=== PATIENT | female | born 1990 | race Two or more races ===

== ENCOUNTER 2017-07-12 18:54 | Emergency (ER) | payer MEDICAID, OTHER, SELFPAY ==
[2017-07-12 19:10] VITALS: BP 132/81
--- NOTE | 2017-07-12 20:15 | EDM.PDOC ---
ED HPI GENERAL MEDICAL PROBLEM - General Chief Complaint: Chest Pain Stated Complaint: CHEST PAINS LEFT SIDE NUMBNESS Time Seen by Provider: 07/12/17 19:04 Source of Information: Reports: Patient, RN Notes Reviewed, Other (Friend) History Limitations: Reports: Language Barrier (The patient's friend acted as a head of design) - History of Present Illness INITIAL COMMENTS - FREE TEXT/NARRATIVE: The patient states that she developed sudden onset stabbing left chest pain around 18:00 tonight, while driving. She had nausea, and both of her hands became cold and tingly. The left side of her face became numb. She denied dyspnea or diaphoresis. She states that she now has only slight symptoms after approximately one hour duration. She states that she felt better after taking aspirin. She reports prior chest pain, but not the other symptoms. The patient's oxygen saturation is noted to be 100% on room air. The patient does not have a PCP. Treatments HAND PICKER: Reports: Aspirin Chest Pain Score (Numeric/FACES): 7 - Related Data Allergies Allergy/AdvReac Type Severity Reaction Status Date / Time No Known Allergies Allergy Verified 07/12/17 19:16 Home Meds: Home Meds . [No Known Home Meds] 07/12/17 [History] Multivitamin [Multiple Vitamins] 1 tab PO DAILY 07/12/17 [History] Past Medical History - Past Health History Medical/Surgical History: Denies Medical/Surgical History Social & Family History - Family History Cardiac: Reports: [place] Other Cardiac Family History: grandmother - Tobacco Use Smoking Status *Q: Never Smoker - Caffeine Use Caffeine Use: Reports: Coffee, Soda - Alcohol Use Alcohol Use History: No - Recreational Drug Use Recreational Drug Use: No - Living Situation & Occupation Living situation: Reports: (), with Family (1 child) Occupation: Employed ([employer]) ED ROS GENERAL - Review of Systems Review Of Systems: See Below Constitutional: Reports: No Symptoms HEENT: Reports: No Symptoms Respiratory: Reports: No Symptoms Cardiovascular: Reports: No Symptoms Endocrine: Reports: No Symptoms GI/Abdominal: Reports: No Symptoms : Reports: No Symptoms Musculoskeletal: Reports: No Symptoms Skin: Reports: No Symptoms Neurological: Reports: No Symptoms Psychiatric: Reports: Depression (x 4 days) Hematologic/Lymphatic: Reports: No Symptoms Immunologic: Reports: No Symptoms ED EXAM, GENERAL - Physical Exam Exam: See Below Exam Limited By: No Limitations General Appearance: Alert, WD/WN, No Apparent Distress, Anxious Eye Exam: Bilateral Eye: Normal Inspection Ears: Normal External Exam, Hearing Grossly Normal Nose: Normal Inspection, No Blood Throat/Mouth: Normal Inspection, Normal Lips, Normal Voice, No Airway Compromise Head: Atraumatic, Normocephalic Neck: Normal Inspection, Full Range of Motion Respiratory/Chest: No Respiratory Distress, Lungs Clear, Normal Breath Sounds, No Accessory Muscle Use Cardiovascular: Normal Peripheral Pulses, Regular Rate, Rhythm, No Gallop, No JVD, No Murmur, No Rub Peripheral Pulses: 4+: Radial (L), Radial (R) GI/Abdominal: Normal Bowel Sounds, Soft, Non-Tender, No Organomegaly, No Distention, No Abnormal Bruit, No Mass (Female) Exam: Deferred Rectal (Female) Exam: Deferred Back Exam: Normal Inspection, Full Range of Motion, NT Extremities: Normal Inspection, Normal Range of Motion, No Pedal Edema, Normal Capillary Refill Neurological: Alert, Oriented, Normal Cognition, No Motor/Sensory Deficits Psychiatric: Normal Affect, Anxious Skin Exam: Warm, Dry, Intact, Normal Color, No Rash Lymphatic: No Adenopathy EKG INTERPRETATION EKG Date: 07/12/17 Time: 19:12 Rhythm: NSR Rate (Beats/Min): 75 [place]: Normal P-Wave: Present QRS: Normal ST-T: Normal QT: Normal Comparison: NA - No Prior EKG Course - Vital Signs Last Recorded V/S: Last Vital Signs Temp 36.0 C 07/12/17 19:09 Pulse 63 07/12/17 19:09 Resp 20 07/12/17 19:09 BP 132/81 07/12/17 19:09 Pulse Ox 100 07/12/17 19:09 Orthostatic Blood Pressure [ 116/92 Standing] Orthostatic Blood Pressure [ 117/83 Sitting] Orthostatic Blood Pressure [ 99/76 Supine] - Orders/Labs/Meds Orders: Active Orders 24 hr Category Date Time Status EKG 12 Lead [EKG Documentation Completion] [RC] STAT Care 07/12/17 19:17 Active Orthostatic Vital Signs [RC] STAT Care 07/12/17 19:41 Active Chest 2V [CR] Stat Exams 07/12/17 19:41 Taken BLOOD GAS ARTERIAL [BG] Stat Lab 07/12/17 19:41 Results CULTURE URINE [RM] Stat Lab 07/12/17 20:02 Received Labs: Laboratory Tests 07/12/17 07/12/17 07/12/17 Range/Units 19:41 20:02 20:02 WBC 11.24 H (3.98-10.04) K/mm3 RBC 4.67 (3.98-5.22) M/mm3 Hgb 14.4 (11.2-15.7) gm/L Hct 40.4 (34.1-44.9) % MCV 86.5 (79.4-94.8) fl MCH 30.8 (25.6-32.2) pg MCHC 35.6 H (32.2-35.5) g/dl RDW Std Deviation 36.9 (36.4-46.3) fL Plt Count 320 (182-369) K/mm3 MPV 9.7 (9.4-12.3) fl Neutrophils % (Manual) 52 (40-60) % Band Neutrophils % 0 (0-10) % Lymphocytes % (Manual) 30 (20-40) % Atypical Lymphs % 0 % Monocytes % (Manual) 12 H (2-10) % Eosinophils % (Manual) 5 (0.7-5.8) % Basophils % (Manual) 0 L (0.1-1.2) Myelocytes % 1 Platelet Estimate Adequate Plt Morphology Comment Normal RBC Morph Comment Normal PT 10.8 (8.0-13.0) SECONDS INR 0.99 APTT 27 (22-36) SECONDS D-Dimer, Quantitative < 0.19 L (0.19-0.59) mg/L Puncture Site Rt radial ABG pH 7.58 H (7.35-7.45) ABG pCO2 17.5 L* (35.0-45.0) mmHg ABG pO2 91.0 (80.0-100.0) mmHg ABG HCO3 16.3 L (22.0-26.0) meq/L ABG O2 Saturation 98.6 H (96.0-97.0) % ABG Base Excess -3.1 L (-2-2.0) A-a Gradient 22 mmHg O2 Delivery Device Room air FiO2 0.00 L (21.00-100.00) % Sodium (136-145) mEq/L Potassium (3.5-5.1) mEq/L Chloride (98-107) mEq/L Carbon Dioxide (21-32) mEq/L Anion Gap (5-15) BUN (7-18) mg/dL Creatinine (0.55-1.02) mg/dL Est Cr Clr Drug Dosing mL/min Estimated GFR (MDRD) (>60) mL/min BUN/Creatinine Ratio (14-18) Glucose (74-106) mg/dL Calcium (8.5-10.1) mg/dL Magnesium (1.8-2.4) mg/dl Total Bilirubin (0.2-1.0) mg/dL AST (15-37) U/L ALT (14-59) U/L Alkaline Phosphatase (46-116) U/L Troponin I (0.00-0.056) ng/mL NT-Pro-B Natriuret Pep (0-125) pg/mL Total Protein (6.4-8.2) g/dl Albumin (3.4-5.0) g/dl Globulin gm/dL Albumin/Globulin Ratio (1-2) TSH 3rd Generation (0.358-3.74) uIU/mL Urine Color (Yellow) Urine Appearance (Clear) Urine pH (5.0-8.0) Ur Specific [place] (1.005-1.030) Urine Protein (Negative) Urine Glucose (UA) (Negative) Urine Ketones (Negative) Urine Occult Blood (Negative) Urine Nitrite (Negative) Urine Bilirubin (Negative) Urine Urobilinogen (0.2-1.0) Ur Leukocyte Esterase (Negative) Urine RBC (0-5) /hpf Urine WBC (0-5) /hpf Ur Epithelial Cells (0-5) /hpf Urine Bacteria (FEW) /hpf Urine Mucus (FEW) /hpf Urine HCG, Qual (NEGATIVE) 07/12/17 07/12/17 07/12/17 Range/Units 20:02 20:02 20:02 WBC (3.98-10.04) K/mm3 RBC (3.98-5.22) M/mm3 Hgb (11.2-15.7) gm/L Hct (34.1-44.9) % MCV (79.4-94.8) fl MCH (25.6-32.2) pg MCHC (32.2-35.5) g/dl RDW Std Deviation (36.4-46.3) fL Plt Count (182-369) K/mm3 MPV (9.4-12.3) fl Neutrophils % (Manual) (40-60) % Band Neutrophils % (0-10) % Lymphocytes % (Manual) (20-40) % Atypical Lymphs % % Monocytes % (Manual) (2-10) % Eosinophils % (Manual) (0.7-5.8) % Basophils % (Manual) (0.1-1.2) Myelocytes % Platelet Estimate Plt Morphology Comment RBC Morph Comment PT (8.0-13.0) SECONDS INR APTT (22-36) SECONDS D-Dimer, Quantitative (0.19-0.59) mg/L Puncture Site ABG pH (7.35-7.45) ABG pCO2 (35.0-45.0) mmHg ABG pO2 (80.0-100.0) mmHg ABG HCO3 (22.0-26.0) meq/L ABG O2 Saturation (96.0-97.0) % ABG Base Excess (-2-2.0) A-a Gradient mmHg O2 Delivery Device FiO2 (21.00-100.00) % Sodium 139 (136-145) mEq/L Potassium 3.3 L (3.5-5.1) mEq/L Chloride 104 (98-107) mEq/L Carbon Dioxide 22 (21-32) mEq/L Anion Gap 16.3 H (5-15) BUN 16 (7-18) mg/dL Creatinine 1.1 H (0.55-1.02) mg/dL Est Cr Clr Drug Dosing 85.86 mL/min Estimated GFR (MDRD) 60 (>60) mL/min BUN/Creatinine Ratio 14.5 (14-18) Glucose 94 (74-106) mg/dL Calcium 9.7 (8.5-10.1) mg/dL Magnesium 2.0 (1.8-2.4) mg/dl Total Bilirubin 0.5 (0.2-1.0) mg/dL AST 15 (15-37) U/L ALT 21 (14-59) U/L Alkaline Phosphatase 44 L (46-116) U/L Troponin I < 0.017 (0.00-0.056) ng/mL NT-Pro-B Natriuret Pep 22 (0-125) pg/mL Total Protein 7.9 (6.4-8.2) g/dl Albumin 4.3 (3.4-5.0) g/dl Globulin 3.6 gm/dL Albumin/Globulin Ratio 1.2 (1-2) TSH 3rd Generation 4.453 H (0.358-3.74) uIU/mL Urine Color Yellow (Yellow) Urine Appearance Slt cloudy H (Clear) Urine pH 6.5 (5.0-8.0) Ur Specific [place] 1.020 (1.005-1.030) Urine Protein Negative (Negative) Urine Glucose (UA) Negative (Negative) Urine Ketones Negative (Negative) Urine Occult Blood Negative (Negative) Urine Nitrite Negative (Negative) Urine Bilirubin Negative (Negative) Urine Urobilinogen 0.2 (0.2-1.0) Ur Leukocyte Esterase 2+ H (Negative) Urine RBC 0-5 (0-5) /hpf Urine WBC 10-20 H (0-5) /hpf Ur Epithelial Cells 5-10 H (0-5) /hpf Urine Bacteria Few (FEW) /hpf Urine Mucus Few (FEW) /hpf Urine HCG, Qual Negative (NEGATIVE) - Re-Assessments/Exams Free Text/Narrative Re-Assessment/Exam: 07/12/17 20:10 The patient is not orthostatic. 07/12/17 20:41 The patient's urinalysis is notable for 10-20 WBCs and 2+ leukocyte esterase, however, there are 5-10 epithelial cells and few bacteria. As the patient is not complaining of urinary symptoms, I believe this urinalysis is consistent with contamination, not a UTI. I have ordered a urine culture, but I am not going to start the patient on antibiotics at this time. Two-view chest radiograph appears to be grossly normal. Cardiac silhouette is within normal limits. No pulmonary vascular congestion. No pleural effusions. No focal infiltrate. No pneumothorax. Formal read per the Radiologist pending. 07/12/17 21:28 The patient's ABG shows extreme acute on chronic respiratory alkalosis. 07/12/17 22:14 Test results discussed with the patient and her friend. The ABG confirms that the patient was hyperventilating, which is usually caused by anxiety, although can be caused by a variety of medical conditions including metabolic acidosis, hypocalcemia, hypoglycemia, hyperthyroidism, liver failure, severe anemia, sepsis, acute coronary event, pneumothorax, pneumonia, dysrhythmia, PE, and CHF. These have been ruled out. I will refer the patient to Dr. Buckley for treatment of anxiety disorder, as well as to check on the urine culture results. Departure - Departure Time of Disposition: 22:15 Disposition: Home, Self-Care 01 Condition: Good Clinical Impression: Hyperventilation syndrome, Anxiety - Discharge Information Instructions: Hyperventilation, Panic Attacks, [id number] Referrals: PCP,Yessenia [Primary Care Provider] - Joe Buckley [Physician] - Forms: ED Department Discharge Additional Instructions: You were seen in the emergency room for stabbing chest pain, nausea, and tingling of your hands and face. Workup in the ER included blood work, an arterial blood gas, a urinalysis, a urine test, an ECG, a chest x-ray, and positional blood pressure checks. Your arterial blood gas confirmed that you were hyperventilating, which is what caused your symptoms. Hyperventilation is usually caused by anxiety, although can be caused by a variety of medical conditions, including metabolic acidosis, hypocalcemia, hypoglycemia, hyperthyroidism, liver failure, severe anemia, sepsis, acute coronary event, pneumothorax, pneumonia, dysrhythmia, PE, and CHF. These have been ruled out - you do not have any of these. The cause of your hyperventilation is MOST LIKELY anxiety. We recommend that you follow-up with Dr. Buckley in the clinic this Tuesday, 2016, to discuss treatment options for anxiety. A sample of your urine was sent for culture. Dr. Buckley can check to make sure that you do not have a urinary tract infection. If any other problems, please do not hesitate to return to the ER. - My Orders Last 24 Hours: My Active Orders 07/12/17 19:17 EKG 12 Lead [EKG Documentation Completion] [RC] STAT 07/12/17 19:41 Orthostatic Vital Signs [RC] STAT Chest 2V [CR] Stat BLOOD GAS ARTERIAL [BG] Stat 07/12/17 20:02 CULTURE URINE [RM] Stat - Assessment/Plan Last 24 Hours: My Active Orders 07/12/17 19:17 EKG 12 Lead [EKG Documentation Completion] [RC] STAT 07/12/17 19:41 Orthostatic Vital Signs [RC] STAT Chest 2V [CR] Stat BLOOD GAS ARTERIAL [BG] Stat 07/12/17 20:02 CULTURE URINE [RM] Stat
--- NOTE | 2017-07-13 08:36 | CR ---
Chest: Two views of the chest were obtained. Comparison: No prior chest x-ray. Heart size and mediastinum are within normal limits. Lungs are clear. Slight scoliosis is present. Bony structures are otherwise unremarkable. Impression: 1. Nothing acute is identified on two-view chest x-ray. Diagnostic code #1
== END 2017-07-12 22:29 | disposition home or self-care (01) ==
LOC: JD.ED 18:54
DX: F45.8 Other somatoform disorders (principal); F41.9 Anxiety disorder, unspecified
CPT/HCPCS: 36415; 36600; 71020; 71020-26; 80053; 81001; 81025; 82803; 83735; 83880; 84443; 84484; 85025; 85379; 85610; 85730; 87086; 93005; 99284; 99285-25

== ENCOUNTER 2018-07-01 19:17 | Emergency (ER) | payer SELFPAY ==
[2018-07-01 19:26] VITALS: BP 120/90
--- NOTE | 2018-07-01 19:47 | EDM.PDOC ---
ED HPI GENERAL MEDICAL PROBLEM - General Chief Complaint: Abdominal Pain Stated Complaint: ABDOMINAL PAIN Time Seen by Provider: 07/01/18 19:21 Source of Information: Reports: Patient History Limitations: Reports: No Limitations, Other (There is a slight language barrier however with our phones we are able to translate and she can speak good enough Indonesian to understand.) - History of Present Illness INITIAL COMMENTS - FREE TEXT/NARRATIVE: This is a 27-year-old female. Onset yesterday with some left lower quadrant pain that has progressively worsened into today. No nausea vomiting or diarrhea. Her last menstrual period was June 02 and she thinks in about 8 days she supposed to have her period again but she might be . She has a history of about 3 years ago of a left ovarian cyst, likely pain she is having now. She denies any fever or chills. She states when she walks the jarring makes her left lower quadrant hurt. When the pain gets more severe and will go around to her lower left back. She's had no urinary symptoms and no blood in her urine. She does have a normal vaginal discharge that is white and does not smell and she says it's normal. llq abdomen/groin and back Pain Score (Numeric/FACES): 5 - Related Data Allergies Allergy/AdvReac Type Severity Reaction Status Date / Time No Known Allergies Allergy Verified 07/01/18 19:27 Home Meds: Home Meds . [No Known Home Meds] 07/01/18 [History] Past Medical History - Past Health History Medical/Surgical History: Denies Medical/Surgical History Psychiatric History: Reports: Anxiety Social & Family History - Family History Family Medical History: Noncontributory Cardiac: Reports: [facility] Other Cardiac Family History: grandmother - Tobacco Use Smoking Status *Q: Never Smoker - Caffeine Use Caffeine Use: Reports: Coffee - Recreational Drug Use Recreational Drug Use: No - Living Situation & Occupation Living situation: Reports: (), with Family (1 child) Occupation: Employed ([employer]) ED ROS GENERAL - Review of Systems Review Of Systems: See Below Constitutional: Denies: Fever, Chills HEENT: Reports: No Symptoms Respiratory: Reports: No Symptoms Cardiovascular: Reports: No Symptoms Endocrine: Reports: No Symptoms GI/Abdominal: Reports: Abdominal Pain. Denies: Diarrhea, Nausea, Vomiting : Reports: Other (She normally has a slight white discharge). Denies: Dysuria , Flank Pain, Frequency, Hematuria Musculoskeletal: Reports: No Symptoms Skin: Reports: No Symptoms Neurological: Reports: No Symptoms Psychiatric: Reports: No Symptoms Hematologic/Lymphatic: Reports: No Symptoms ED EXAM, GI/ABD - Physical Exam Exam: See Below Exam Limited By: Other (Limitations as in the history of present illness) General Appearance: Alert, WD/WN, No Apparent Distress Eyes: Bilateral: Normal Appearance Ears: Normal External Exam Nose: Normal Inspection Throat/Mouth: Normal Inspection, Normal Lips, Normal Oropharynx, Normal Voice, No Airway Compromise Head: Normocephalic Neck: Supple Respiratory/Chest: No Respiratory Distress, Lungs Clear, Normal Breath Sounds Cardiovascular: Regular Rate, Rhythm, No Murmur GI/Abdominal Exam: Soft, Other (She has tenderness in the left lower quadrant but no rebound is noted, palpation deep in the left lower quadrant will tend to make her left lower back have some pain as well, the right lower quadrant in the upper abdomen is nontender, bowel sounds are positive) (Female) Exam: Deferred, Other (This was deferred by the patient until we have the results of the lab work and the ultrasound) Rectal (Female) Exam: Deferred Back Exam: Normal Inspection, Full Range of Motion Extremities: Normal Inspection, Normal Range of Motion Neurological: Alert, Oriented Psychiatric: Normal Affect, Normal Mood Skin Exam: Warm, Dry Course - Vital Signs Last Recorded V/S: Last Vital Signs Temp 98 F 07/01/18 19:24 Pulse 64 07/01/18 19:24 Resp 18 07/01/18 19:24 BP 120/90 07/01/18 19:24 Pulse Ox 100 07/01/18 19:24 - Orders/Labs/Meds Orders: Active Orders 24 hr Category Date Time Status OB Transvaginal [US] Stat Exams 07/01/18 20:10 Taken ABO/RH TYPE [BBK] Stat Lab 07/01/18 19:49 Received CULTURE URINE [RM] Stat Lab 07/01/18 19:44 Received HCG QUANTITATIVE,SERUM [CHEM] Stat Lab 07/01/18 19:49 Received Labs: Laboratory Tests 07/01/18 07/01/18 07/01/18 Range/Units 19:44 19:49 19:49 WBC 11.67 H (3.98-10.04) K/mm3 RBC 4.35 (3.98-5.22) M/mm3 Hgb 13.2 (11.2-15.7) gm/L Hct 38.7 (34.1-44.9) % MCV 89.0 (79.4-94.8) fl MCH 30.3 (25.6-32.2) pg MCHC 34.1 (32.2-35.5) g/dl RDW Std Deviation 39.8 (36.4-46.3) fL Plt Count 298 (182-369) K/mm3 MPV 9.6 (9.4-12.3) fl Neut % (Auto) 59.3 (34.0-71.1) % Lymph % (Auto) 33.2 (19.3-51.7) % [place] % (Auto) 5.9 (4.7-12.5) % Eos % (Auto) 0.9 (0.7-5.8) Baso % (Auto) 0.3 (0.1-1.2) % Neut # (Auto) 6.91 H (1.56-6.13) K/mm3 Lymph # (Auto) 3.88 H (1.18-3.74) K/mm3 [place] # (Auto) 0.69 H (0.24-0.36) K/mm3 Eos # (Auto) 0.11 (0.04-0.36) K/mm3 Baso # (Auto) 0.03 (0.01-0.08) K/mm3 Sodium 137 (136-145) mEq/L Potassium 3.7 (3.5-5.1) mEq/L Chloride 104 (98-107) mEq/L Carbon Dioxide 23 (21-32) mEq/L Anion Gap 13.7 (5-15) BUN 13 (7-18) mg/dL Creatinine 0.9 (0.55-1.02) mg/dL Est Cr Clr Drug Dosing 104.01 mL/min Estimated GFR (MDRD) > 60 (>60) mL/min BUN/Creatinine Ratio 14.4 (14-18) Glucose 88 (74-106) mg/dL Calcium 9.0 (8.5-10.1) mg/dL Total Bilirubin 0.4 (0.2-1.0) mg/dL AST 9 L (15-37) U/L ALT 12 L (14-59) U/L Alkaline Phosphatase 46 (46-116) U/L Total Protein 7.2 (6.4-8.2) g/dl Albumin 3.9 (3.4-5.0) g/dl Globulin 3.3 gm/dL Albumin/Globulin Ratio 1.2 (1-2) HCG, Qual (NEGATIVE) Urine Color Light yellow (Yellow) Urine Appearance Clear (Clear) Urine pH 6.0 (5.0-8.0) Ur Specific [place] > or = 1.030 (1.005-1.030) Urine Protein Trace H (Negative) Urine Glucose (UA) Negative (Negative) Urine Ketones Negative (Negative) Urine Occult Blood Negative (Negative) Urine Nitrite Negative (Negative) Urine Bilirubin Negative (Negative) Urine Urobilinogen 0.2 (0.2-1.0) Ur Leukocyte Esterase 1+ H (Negative) Urine RBC Not seen (0-5) /hpf Urine WBC 10-20 H (0-5) /hpf Ur Epithelial Cells 5-10 H (0-5) /hpf Urine Bacteria Moderate H (FEW) /hpf Urine Mucus Few (FEW) /hpf //18 Range/Units 19:49 WBC (3.98-10.04) K/mm3 RBC (3.98-5.22) M/mm3 Hgb (11.2-15.7) gm/L Hct (34.1-44.9) % MCV (79.4-94.8) fl MCH (25.6-32.2) pg MCHC (32.2-35.5) g/dl RDW Std Deviation (36.4-46.3) fL Plt Count (182-369) K/mm3 MPV (9.4-12.3) fl Neut % (Auto) (34.0-71.1) % Lymph % (Auto) (19.3-51.7) % [place] % (Auto) (4.7-12.5) % Eos % (Auto) (0.7-5.8) Baso % (Auto) (0.1-1.2) % Neut # (Auto) (1.56-6.13) K/mm3 Lymph # (Auto) (1.18-3.74) K/mm3 [place] # (Auto) (0.24-0.36) K/mm3 Eos # (Auto) (0.04-0.36) K/mm3 Baso # (Auto) (0.01-0.08) K/mm3 Sodium (136-145) mEq/L Potassium (3.5-5.1) mEq/L Chloride (98-107) mEq/L Carbon Dioxide (21-32) mEq/L Anion Gap (5-15) BUN (7-18) mg/dL Creatinine (0.55-1.02) mg/dL Est Cr Clr Drug Dosing mL/min Estimated GFR (MDRD) (>60) mL/min BUN/Creatinine Ratio (14-18) Glucose (74-106) mg/dL Calcium (8.5-10.1) mg/dL Total Bilirubin (0.2-1.0) mg/dL AST (15-37) U/L ALT (14-59) U/L Alkaline Phosphatase (46-116) U/L Total Protein (6.4-8.2) g/dl Albumin (3.4-5.0) g/dl Globulin gm/dL Albumin/Globulin Ratio (1-2) HCG, Qual Positive H (NEGATIVE) Urine Color (Yellow) Urine Appearance (Clear) Urine pH (5.0-8.0) Ur Specific [place] (1.005-1.030) Urine Protein (Negative) Urine Glucose (UA) (Negative) Urine Ketones (Negative) Urine Occult Blood (Negative) Urine Nitrite (Negative) Urine Bilirubin (Negative) Urine Urobilinogen (0.2-1.0) Ur Leukocyte Esterase (Negative) Urine RBC (0-5) /hpf Urine WBC (0-5) /hpf Ur Epithelial Cells (0-5) /hpf Urine Bacteria (FEW) /hpf Urine Mucus (FEW) /hpf - Radiology Interpretation Free Text/Narrative:: Ultrasound showed a small cystic focus located in the endometrium that could represent an early gestational sac or pseudogout stay. Since no yolk or pole were identified. She was noted to have a large amount of free fluid in the pelvis so they could not rule out an ectopic . - Re-Assessments/Exams Free Text/Narrative Re-Assessment/Exam: 07/01/18 22:16 I spoke to the patient regarding the ultrasound results and the lab results indicating that she is but we need to be careful because she so early she might have an ectopic causing her left lower quadrant abdominal pain. I explained that she is going to have a series of tests on Tuesday and before she sees Dr. Bello on . However she is to call Dr. Bello's office on Tuesday to get an appointment to be seen on . I spoke to Dr. Bello regarding the findings on the ultrasound and he wishes her to have an outpatient beta hCG quantitative done on Tuesday on the and then on before he sees her in the clinic in the afternoon another beta hCG quantitative along with an OB ultrasound and a CBC. I will write the orders for these things to occur. We will explained this to the patient as best we can. She knows that if things get worse she needs to come back to the ER. Departure - Departure Time of Disposition: 22:18 Disposition: Home, Self-Care 01 Condition: Fair Clinical Impression: First trimester Unspecified ectopic with intrauterine Qualifiers: Location of ectopic : unspecified location Qualified Code(s): O00.91 - Unspecified ectopic with intrauterine - Discharge Information *PRESCRIPTION DRUG MONITORING PROGRAM REVIEWED*: Not Applicable *COPY OF PRESCRIPTION DRUG MONITORING REPORT IN PATIENT ISSA: Not Applicable Referrals: Ilia Bello MD [Physician] - Forms: ED Department Discharge Additional Instructions: You need to call, ,the OB, Dr. Bello's office Tuesday to get an appointment with him for on the . Then Tuesday on the you need to return to the hospital to have your blood drawn again for the beta hCG quantitative test to see how far along you are in your . On the you need to return to the hospital to have your blood drawn again for another beta hCG quantitative test and a CBC and then you are also to get an ultrasound for your . Then that is when you will see Dr. Bello and he will tell you all the results and what is going on. If there is worsening of your symptoms especially severe pain in your lower abdomen either midline or in the left lower quadrant return to the ER immediately. If you need medicine for the pain you may take some Tylenol, DO NOT TAKE any ibuprofen, Advil, Aleve or Motrin since it can hurt your baby. - My Orders Last 24 Hours: My Active Orders 07/01/18 19:44 CULTURE URINE [RM] Stat 07/01/18 19:49 ABO/RH TYPE [BBK] Stat HCG QUANTITATIVE,SERUM [CHEM] Stat 07/01/18 20:10 OB Transvaginal [US] Stat - Assessment/Plan Last 24 Hours: My Active Orders 07/01/18 19:44 CULTURE URINE [RM] Stat 07/01/18 19:49 ABO/RH TYPE [BBK] Stat HCG QUANTITATIVE,SERUM [CHEM] Stat 07/01/18 20:10 OB Transvaginal [US] Stat
== END 2018-07-01 22:35 | disposition home or self-care (01) ==
LOC: JD.ED 19:17
DX: O00.91 Unspecified ectopic pregnancy with intrauterine pregnancy (principal)
CPT/HCPCS: 36415; 76817; 80053; 81001; 84702; 84703; 85025; 86900; 86901; 87086; 99283; 99284-25

== ENCOUNTER 2019-02-09 19:52 | Inpatient (IN) | payer MEDICAID ==
[2019-02-09] MEDS ORDERED: Sodium Chloride 0.9% 10 ML Syringe FLUSH PRN (20:39)
[2019-02-09] MEDS ORDERED: Nalbuphine 20 MG/ML 1 ML Syringe IVPUSH PRN (20:39)
[2019-02-09] MEDS ORDERED: Lidocaine 1% 50 ML MDV INJECT ONE (20:39)
[2019-02-09] MEDS ORDERED: Oxytocin/Lactated Ringers 10 UNIT/1,000 ML BAG IV SCH (20:45)
[2019-02-09] MEDS: Lactated Ringers 1,000 ML IV SCH ×3 (21:05→23:20)
[2019-02-09] MEDS ORDERED: fentaNYL 100 MCG/2 ML SDV ONE (22:25)
[2019-02-09] MEDS ORDERED: fentaNYL 100 MCG/2 ML SDV EPIDUR PRN (22:51)
[2019-02-09] MEDS ORDERED: Ondansetron 4 MG/2 ML SDV IVPUSH PRN (22:52)
[2019-02-09] MEDS ORDERED: ePHEDrine 50 MG/ML SDV IVPUSH PRN (22:52)
--- NOTE | 2019-02-09 22:59 | PCM.PREANE ---
Preanesthetic Assessment - Procedure Proposed Procedure: Continuous Labor Epidural - Anesthesia/Transfusion/Family Hx Anesthesia History: Prior Anesthesia Without Reaction Family History of Anesthesia Reaction: No Transfusion History: No Prior Transfusion(s) Intubation History: Unknown - Review of Systems General: No Symptoms Pulmonary: No Symptoms Cardiovascular: No Symptoms Gastrointestinal: No Symptoms, Other (ulcer history ) Neurological: No Symptoms Other: Reports: None, Depression ( depression ) - Physical Assessment NPO Status Date: 02/09/19 NPO Status Time: 20:30 Pulse: 91 O2 Sat by Pulse Oximetry: 100 Respiratory Rate: 16 Blood Pressure: 106/70 Height: 1.8 m Weight: 82.1 kg ASA Class: 2 Mental Status: Alert & Oriented x3 Airway Class: Mallampati = 1 Dentition: Reports: Normal Dentition Thyro-Mental Finger Breadths: 3 Mouth Opening Finger Breadths: 5 ROM/Head Extension: Full Lungs: Clear to Auscultation, Normal Respiratory Effort Cardiovascular: Regular Rate, Regular Rhythm - Lab Values: Laboratory Last Values WBC 9.93 K/mm3 (3.98-10.04) 02/09/19 20:53 RBC 4.53 M/mm3 (3.98-5.22) 02/09/19 20:53 Hgb 13.5 gm/L (11.2-15.7) 02/09/19 20:53 Hct 40.1 % (34.1-44.9) 02/09/19 20:53 MCV 88.5 fl (79.4-94.8) 02/09/19 20:53 MCH 29.8 pg (25.6-32.2) 02/09/19 20:53 MCHC 33.7 g/dl (32.2-35.5) 02/09/19 20:53 RDW Std Deviation 41.8 fL (36.4-46.3) 02/09/19 20:53 Plt Count 246 K/mm3 (182-369) 02/09/19 20:53 MPV 10.3 fl (9.4-12.3) 02/09/19 20:53 Neut % (Auto) 65.6 % (34.0-71.1) 02/09/19 20:53 Lymph % (Auto) 23.2 % (19.3-51.7) 02/09/19 20:53 [place] % (Auto) 8.6 % (4.7-12.5) 02/09/19 20:53 Eos % (Auto) 1.1 (0.7-5.8) 02/09/19 20:53 Baso % (Auto) 0.5 % (0.1-1.2) 02/09/19 20:53 Neut # (Auto) 6.52 K/mm3 (1.56-6.13) H 02/09/19 20:53 Lymph # (Auto) 2.30 K/mm3 (1.18-3.74) 02/09/19 20:53 [place] # (Auto) 0.85 K/mm3 (0.24-0.36) H 02/09/19 20:53 Eos # (Auto) 0.11 K/mm3 (0.04-0.36) 02/09/19 20:53 Baso # (Auto) 0.05 K/mm3 (0.01-0.08) 02/09/19 20:53 RPR Non-reactive (NONREACTIVE) 02/09/19 20:53 - Allergies Allergies/Adverse Reactions: Allergies Allergy/AdvReac Type Severity Reaction Status Date / Time No Known Allergies Allergy Verified 01/20/19 11:43 - Blood Blood Available: No - Acknowledgements Anesthesia Type Planned: Epidural Pt an Appropriate Candidate for the Planned Anesthesia: Yes Alternatives and Risks of Anesthesia Discussed w Pt/Guardian: Yes Pt/Guardian Understands and Agrees with Anesthesia Plan: Yes PreAnesthesia Questionnaire - Past Health History Medical/Surgical History: Denies Medical/Surgical History Psychiatric History: Reports: Anxiety - HOME MEDS Home Medications: Home Meds Vit #108/Iron/FA [ One Tablet] 1 tab PO DAILY 09/28/18 [History ] Cyclobenzaprine [Flexeril] 10 mg PO TID PRN #60 tab 01/20/19 [Rx] Nitrofurantoin Macrocrystal [Macrodantin] 100 mg PO BID #14 capsule 01/20/19 [Rx ] - CURRENT (IN HOUSE) MEDS Current Meds: Current Medications Fentanyl (Sublimaze) 100 mcg EPIDUR Q3H PRN PRN Reason: Pain Fentanyl/Bupivacaine HCl (Fentanyl/Bupivacaine/Ns 2.5 Mcg-0.1% 50 Ml) 50 ml EPIDUR ASDIRECTED EDDIE Lactated Ringer's (Ringers, Lactated) 1,000 mls @ 100 mls/hr IV ASDIRECTED EDDIE Last Admin: 02/09/19 22:43 Dose: 999 mls/hr Oxytocin/Lactated Ringer's (Pitocin In Lr 10 Units/1,000 Ml) 10 unit in 1,000 mls @ 500 mls/hr IV .CONTINUOUS EDDIE Nalbuphine HCl (Nubain) 10 mg IVPUSH Q2H PRN PRN Reason: pain Sodium Chloride (Saline Flush) 10 ml FLUSH ASDIRECTED PRN PRN Reason: Keep Vein Open Discontinued Medications Fentanyl (Sublimaze) Confirm Administered Dose 100 mcg .ROUTE .STK-MED ONE Stop: 02/09/19 22:26 Lidocaine HCl (Xylocaine 1%) 50 ml INJECT ONETIME ONE Stop: 02/09/19 20:40
[2019-02-09] MEDS ORDERED: fentaNYL/Bupivacaine-NS 2 MCG/ML-0.125%/PF 100 ML Bag EPIDUR SCH (23:00)
--- NOTE | 2019-02-10 01:12 | PCM.DEL ---
L & D Note - General Info Date of Service: 02/10/19 - Delivery Note Labor: Spontaneous Delivery Outcome: Livebirth Delivery Method: Spontaneous Vaginal Delivery-Single Delivery Mode: Spontaneous Presentation: Right Occiput Anterior (GARRY) Nuchal Cord: None Anesthesia Type: Epidural Amniotic Fluid Description: Clear Episiotomy Type: None Laceration: None Placenta: Intact, Spontaneous Cord: 3 Vessels Estimated Blood Loss: 200 : Bulb Syringe, Stimulated, Warmed, [place] Used, Warmer Used Delivery Comments (Free Text/Narrative):: Patient progressed nicely to complete dilation with BBOW. AROM performed. She then began pushing. With maternal pushing effort head delivered from an GARRY presentation. No nuchal cord present. With gentle downward traction the shoulders and body delivered. placed on maternal abdomen. Cord clamped and cut. Cord blood obtained. Placenta allowed time to separate and expelled intact. Inspection of the perineum showed no laceration. - General Info Date of Service: 02/10/19 - Patient Data Vitals - Most Recent: Last Vital Signs Temp 36.1 C 02/09/19 20:02 Pulse 91 02/09/19 22:58 Resp 16 02/09/19 22:58 BP 106/70 02/09/19 22:58 Pulse Ox 100 02/09/19 22:58 Weight - Most Recent: 82.1 kg I&O - Last 24 Hours: Intake & Output 02/09/19 02/09/19 02/10/19 14:59 22:59 06:59 Intake Total 1999 Balance 1999 - Problem List & Annotations (1) 36 weeks gestation of SNOMED Code(s): 69415058 Code(s): Z3A.36 - 36 WEEKS GESTATION OF Status: Acute Current Visit: Yes (2) Normal labor SNOMED Code(s): 82015056 Code(s): O80 - ENCOUNTER FOR FULL-TERM UNCOMPLICATED DELIVERY; Z37.9 - OUTCOME OF DELIVERY, UNSPECIFIED Status: Acute Current Visit: Yes (3) Vaginal delivery SNOMED Code(s): 425012555 Code(s): O80 - ENCOUNTER FOR FULL-TERM UNCOMPLICATED DELIVERY Status: Acute Current Visit: Yes - Problem List Review Problem List Initiated/Reviewed/Updated: Yes - My Orders Last 24 Hours: My Active Orders 02/09/19 20:02 Patient Status [ADT] Routine Non Stress Test [RC] PER UNIT ROUTINE Vital Signs [RC] PER UNIT ROUTINE Resuscitation Status Routine 02/09/19 20:39 Patient Status [ADT] Routine Activity as Tolerated [RC] PFP Communication Order [RC] ASDIRECTED Heart Tones [RC] ASDIRECTED Non Stress Test [RC] PER UNIT ROUTINE Notify Provider [RC] PFP Notify Provider [RC] PRN Peripheral IV Care [RC] . DIRECTED Vital Signs [RC] PER UNIT ROUTINE Nalbuphine [Nubain] 10 mg IVPUSH Q2H PRN Sodium Chloride 0.9% [Saline Flush] 10 ml FLUSH ASDIRECTED PRN Electronic Heart Tones Ext w TOCO [WOMSER] Routine Electronic Heart Tones Internal [WOMSER] Per Unit Routine Peripheral IV Insertion Adult [OM.PC] Routine 02/09/19 20:45 Lactated Ringers [Ringers, Lactated] 1,000 ml IV ASDIRECTED Oxytocin/Lactated Ringers [Pitocin in LR 10 Units/1,000 ML] 10 unit in 1,000 ml IV .CONTINUOUS 02/10/19 01:09 Patient Status Manage Transfer [TRANSFER] Routine 02/10/19 Breakfast Regular Diet [DIET] - Assessment Assessment:: 28 y/o G2 now P2002 PPD#0 from at 36 6/7 wks - Plan Plan:: * Routine cares * Encourage breast feeding * Discharge home in 1-2 days
[2019-02-10] MEDS ORDERED: Lidocaine 1.5% with EPINEPHrine 1:200,000 5 ML Amp ONE (03:00)
[2019-02-10] MEDS ORDERED: Bupivacaine 0.25% 10 ML SDV ONE (03:00)
[2019-02-10] MEDS ORDERED: Ibuprofen 600 MG Tab PO PRN (03:49)
[2019-02-10] MEDS ORDERED: Benzocaine/Menthol 20%-0.5% Spray 56 GM Canister TOP PRN (03:49)
[2019-02-10] MEDS ORDERED: Witch Hazel Medicated Pads 40/Jar TOP PRN (03:49)
[2019-02-10] MEDS ORDERED: Lanolin 100% Cream 7 GM Tube TOP PRN (03:49)
[2019-02-10] MEDS ORDERED: Acetaminophen 325 MG Tab PO PRN (03:49)
[2019-02-10] MEDS ORDERED: Docusate Sodium 100 MG Cap PO PRN (03:49)
--- NOTE | 2019-02-10 08:18 | PCM.LDHP ---
L&D History of Present Illness - General Date of Service: 02/09/19 Admit Problem/Dx: Admission Diagnosis/Problem Admission Diagnosis/Problem Source of Information: Patient History Limitations: Reports: No Limitations - History of Present Illness Introduction:: Patient is a 28 y/o at 36 5/7 wks who presents with contractions. Was seen on L&D yesterday for labor check and found to be 4 cm. Now having more painful contractions. No LOF. 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 No present s/s depression. Social & Family History - Family History Family Medical History: Noncontributory Cardiac: Reports: ID Other Cardiac Family History: grandmother - Tobacco Use Smoking Status *Q: Never Smoker Second Hand Smoke Exposure: No - Caffeine Use Caffeine Use: Reports: None - Alcohol Use Alcohol Use History: No - Recreational Drug Use Recreational Drug Use: No - Living Situation & Occupation Living situation: Reports: (), with Family (1 child) Occupation: Employed ([employer]) H&P Review of Systems - Review of Systems: Review Of Systems: See Below General: Reports: No Symptoms Pulmonary: Reports: No Symptoms Cardiovascular: Reports: No Symptoms Gastrointestinal: Reports: No Symptoms Genitourinary: Reports: No Symptoms Musculoskeletal: Reports: No Symptoms Psychiatric: Reports: No Symptoms Neurological: Reports: No Symptoms L&D Exam - Exam Exam: See Below - Vital Signs Vital Signs: Last Vital Signs Temp 36.5 C 02/10/19 05:51 Pulse 71 02/10/19 05:51 Resp 14 02/10/19 05:51 BP 102/67 02/10/19 05:51 Pulse Ox 96 02/10/19 05:51 Weight: 82.1 kg - OB Specific Contraction Intensity: Moderate to Strong Movement: Active Heart Tones: Present Heart Tones per Min: 130 Heart Rate (FHR) Variability: Moderate (6-25 bmp) Presentation: Vertex - Almeida Score Almeida Score Cervix Position: Anterior Almeida Score Consistency: Soft Almeida Score Effacement: >80% Almeida Score Dilation: > 5 cm Almeida Score Infant's Station: -1 ,0 Almeida Score Total: 12 - Exam General: Alert, Oriented, Cooperative Lungs: Clear to Auscultation, Normal Respiratory Effort Cardiovascular: Regular Rate, Regular Rhythm GI/Abdominal Exam: Soft, Non-Tender Genitourinary: Normal external exam Extremities: Normal Inspection Skin: Warm, Dry, Intact - Patient Data Lab Results Last 24 hrs: Laboratory Results - last 24 hr 02/09/19 02/09/19 Range/Units 20:53 20:53 WBC 9.93 (3.98-10.04) K/mm3 RBC 4.53 (3.98-5.22) M/mm3 Hgb 13.5 (11.2-15.7) gm/L Hct 40.1 (34.1-44.9) % MCV 88.5 (79.4-94.8) fl MCH 29.8 (25.6-32.2) pg MCHC 33.7 (32.2-35.5) g/dl RDW Std Deviation 41.8 (36.4-46.3) fL Plt Count 246 (182-369) K/mm3 MPV 10.3 (9.4-12.3) fl Neut % (Auto) 65.6 (34.0-71.1) % Lymph % (Auto) 23.2 (19.3-51.7) % [place] % (Auto) 8.6 (4.7-12.5) % Eos % (Auto) 1.1 (0.7-5.8) Baso % (Auto) 0.5 (0.1-1.2) % Neut # (Auto) 6.52 H (1.56-6.13) K/mm3 Lymph # (Auto) 2.30 (1.18-3.74) K/mm3 [place] # (Auto) 0.85 H (0.24-0.36) K/mm3 Eos # (Auto) 0.11 (0.04-0.36) K/mm3 Baso # (Auto) 0.05 (0.01-0.08) K/mm3 RPR Non-reactive (NONREACTIVE) Result Diagrams: 02/09/19 20:53 - Problem List (1) 36 weeks gestation of SNOMED Code(s): 00661608 ICD Code: Z3A.36 - 36 WEEKS GESTATION OF Status: Acute Current Visit: Yes (2) Normal labor SNOMED Code(s): 56626200 ICD Code: O80 - ENCOUNTER FOR FULL-TERM UNCOMPLICATED DELIVERY; Z37.9 - OUTCOME OF DELIVERY, UNSPECIFIED Status: Acute Current Visit: Yes Problem List Initiated/Reviewed/Updated: Yes Orders Last 24hrs: Active Orders 24 hr Category Date Time Status Activity as Tolerated [RC] PER UNIT ROUTINE Care 02/10/19 03:49 Active Cooling Warming Measures [RC] ASDIRECTED Care 02/09/19 22:52 Inactive Heart Tones [RC] ASDIRECTED Care 02/09/19 20:39 Inactive Non Stress Test [RC] PER UNIT ROUTINE Care 02/09/19 20:39 Inactive Oxygen Therapy [RC] ASDIRECTED Care 02/09/19 22:52 Inactive Pulse Oximetry [RC] ASDIRECTED Care 02/09/19 22:52 Inactive Vital Signs [RC] ASDIRECTED Care 02/10/19 03:49 Active Vital Signs [RC] PER UNIT ROUTINE Care 02/09/19 20:39 Inactive Regular Diet [DIET] Diet 02/10/19 Breakfast Active Acetaminophen [Tylenol] Med 02/10/19 03:49 Active 650 mg PO Q4H PRN Benzocaine/Menthol [Dermoplast Pain Relief [place]] Med 02/10/19 03:49 Active See Dose Instructions TOP ASDIRECTED PRN Docusate Sodium [Colace] Med 02/10/19 03:49 Active 100 mg PO BID PRN Ibuprofen [Motrin] Med 02/10/19 03:49 Active 600 mg PO Q6H PRN Lanolin [Lansinoh HPA] Med 02/10/19 03:49 Active See Dose Instructions TOP ASDIRECTED PRN Witch Tamiko [Tucks] Med 02/10/19 03:49 Active 1 pad TOP ASDIRECTED PRN Assess Lochia [WOMSER] Per Unit Routine Oth 02/10/19 03:49 Ordered Assess Uterine Involution [WOMSER] Per Unit Routine Oth 02/10/19 03:49 Ordered Breast Pump [WOMSER] Per Unit Routine Oth 02/10/19 03:49 Ordered Heat Therapy [OM.PC] PRN Oth 02/10/19 03:49 Ordered Heat Therapy [OM.PC] PRN Oth 02/11/19 03:49 Ordered Ice Therapy [OM.PC] Per Unit Routine Oth 02/10/19 03:49 Ordered Perineal Care [OM.PC] Per Unit Routine Ot 02/10/19 03:49 Ordered Peripheral IV Discontinue [OM.PC] Routine Ot 02/10/19 03:49 Ordered Sitz Bath [OM.PC] Per Unit Routine Ot 02/10/19 03:49 Ordered Resuscitation Status Routine Resus Stat 02/09/19 20:02 Ordered Medication Orders Acetaminophen (Tylenol) 650 mg PO Q4H PRN PRN Reason: mild pain or fever Benzocaine/Menthol (Dermoplast Pain Relief [place]) 0 gm TOP ASDIRECTED PRN PRN Reason: Perineal Comfort Measure Docusate Sodium (Colace) 100 mg PO BID PRN PRN Reason: Constipation Emollient Ointment (Lansinoh Hpa) 0 gm TOP ASDIRECTED PRN PRN Reason: Sore Nipples Ibuprofen (Motrin) 600 mg PO Q6H PRN PRN Reason: Mild pain or fever Witch Tamiko (Tucks) 1 pad TOP ASDIRECTED PRN PRN Reason: Pain Assessment/Plan Comment:: 28 y/o at 36 5/7 wks presents in labor. Yesterday 4 cm and now on nursing exam 5-6 cm. Will admit. GBS negative, no need for antibiotics. Pain control per patient preference. Labs drawn. Anticipate
[2019-02-10 17:33] VITALS: BP 118/92
--- NOTE | 2019-02-10 18:01 | PCM.DCSUM1 ---
Discharge Summary - Discharge Data Discharge Date: 02/10/19 Discharge Disposition: Home, Self-Care 01 Condition: Good - Discharge Diagnosis/Problem(s) (1) 36 weeks gestation of SNOMED Code(s): 28336346 ICD Code: Z3A.36 - 36 WEEKS GESTATION OF Status: Acute Current Visit: Yes (2) Normal labor SNOMED Code(s): 50815101 ICD Code: O80 - ENCOUNTER FOR FULL-TERM UNCOMPLICATED DELIVERY; Z37.9 - OUTCOME OF DELIVERY, UNSPECIFIED Status: Acute Current Visit: Yes (3) Vaginal delivery SNOMED Code(s): 657410482 ICD Code: O80 - ENCOUNTER FOR FULL-TERM UNCOMPLICATED DELIVERY Status: Acute Current Visit: Yes - Patient Summary/Data Complications: None Consults: None Recommended Follow-up Testing/Procedures: Follow up in 2-3 weeks for check Hospital Course: 28 y/o at 36 5/7 wks who presented in labor. Progressed to complete dilation without augmentation. Underwent AROM at complete dilation and then quickly had uncomplicated . See delivery note. mom did well . There was concern for possible subgaleal hemorrhage / bleeding concerns with baby which required transfer to higher level of care. For this reason mom was discharged as well on PPD#0 - Patient Instructions Diet: Regular Diet as Tolerated Activity: As Tolerated Activity, Other: Pelvic Rest for 6 weeks Driving: May Drive Today Showering/Bathing: May Shower Showering/Bathing, Other: May Bathe Notify Provider of: Fever, Increased Pain, Swelling and Redness, Drainage, Nausea and/or Vomiting - Discharge Plan *PRESCRIPTION DRUG MONITORING PROGRAM REVIEWED*: Not Applicable *COPY OF PRESCRIPTION DRUG MONITORING REPORT IN PATIENT ISSA: Not Applicable Home Medications: Home Meds Vit #108/Iron/FA [ One Tablet] 1 tab PO DAILY 09/28/18 [History ] Docusate Sodium [Colace] 100 mg PO BID PRN cap 02/10/19 [Rx] Ibuprofen [Motrin] 600 mg PO Q6H PRN tablet 02/10/19 [Rx] Patient Handouts: Exclusive , Baby Blues, Vaginal Delivery, Care After, Tips for a Good Latch Referrals: Bernabe Ramirez MD [Physician] - (2 weeks for check ) - Discharge Summary/Plan Comment DC Time >30 min.: No - Patient Data Vitals - Most Recent: Last Vital Signs Temp 36.4 C 02/10/19 16:00 Pulse 74 02/10/19 16:00 Resp 14 02/10/19 16:00 BP 118/92 H 02/10/19 16:00 Pulse Ox 99 02/10/19 16:00 Weight - Most Recent: 82.1 kg I&O - Last 24 hours: Intake & Output 02/10/19 02/10/19 02/10/19 06:59 14:59 22:59 Intake Total 1999 240 Balance 1999 240 Lab Results - Last 24 hrs: Laboratory Results - last 24 hr 02/09/19 02/09/19 Range/Units 20:53 20:53 WBC 9.93 (3.98-10.04) K/mm3 RBC 4.53 (3.98-5.22) M/mm3 Hgb 13.5 (11.2-15.7) gm/L Hct 40.1 (34.1-44.9) % MCV 88.5 (79.4-94.8) fl MCH 29.8 (25.6-32.2) pg MCHC 33.7 (32.2-35.5) g/dl RDW Std Deviation 41.8 (36.4-46.3) fL Plt Count 246 (182-369) K/mm3 MPV 10.3 (9.4-12.3) fl Neut % (Auto) 65.6 (34.0-71.1) % Lymph % (Auto) 23.2 (19.3-51.7) % [place] % (Auto) 8.6 (4.7-12.5) % Eos % (Auto) 1.1 (0.7-5.8) Baso % (Auto) 0.5 (0.1-1.2) % Neut # (Auto) 6.52 H (1.56-6.13) K/mm3 Lymph # (Auto) 2.30 (1.18-3.74) K/mm3 [place] # (Auto) 0.85 H (0.24-0.36) K/mm3 Eos # (Auto) 0.11 (0.04-0.36) K/mm3 Baso # (Auto) 0.05 (0.01-0.08) K/mm3 RPR Non-reactive (NONREACTIVE) Med Orders - Current: Current Medications Acetaminophen (Tylenol) 650 mg PO Q4H PRN PRN Reason: mild pain or fever Benzocaine/Menthol (Dermoplast Pain Relief [place]) 0 gm TOP ASDIRECTED PRN PRN Reason: Perineal Comfort Measure Docusate Sodium (Colace) 100 mg PO BID PRN PRN Reason: Constipation Emollient Ointment (Lansinoh Hpa) 0 gm TOP ASDIRECTED PRN PRN Reason: Sore Nipples Ibuprofen (Motrin) 600 mg PO Q6H PRN PRN Reason: Mild pain or fever Witch Tamiko (Tucks) 1 pad TOP ASDIRECTED PRN PRN Reason: Pain Discontinued Medications Ephedrine Sulfate (Ephedrine Sulfate) 5 mg IVPUSH ASDIRECTED PRN PRN Reason: Hypotension Fentanyl (Sublimaze) Confirm Administered Dose 100 mcg .ROUTE .STK-MED ONE Stop: 02/09/19 22:26 Fentanyl (Sublimaze) 100 mcg EPIDUR Q3H PRN PRN Reason: Pain Last Admin: 02/09/19 23:12 Dose: 100 mcg Fentanyl/Bupivacaine HCl (Jsptmmbu-Qddjo-Cv 2 Mcg/Ml-0.125%) 100 ml EPIDUR ASDIRECTED [facility] Last Admin: 02/09/19 23:12 Dose: 100 ml Lactated Ringer's (Ringers, Lactated) 1,000 mls @ 100 mls/hr IV ASDIRECTED [facility] Last Admin: 02/09/19 23:20 Dose: 100 mls/hr Oxytocin/Lactated Ringer's (Pitocin In Lr 10 Units/1,000 Ml) 10 unit in 1,000 mls @ 500 mls/hr IV .CONTINUOUS [facility] Lidocaine HCl (Xylocaine 1%) 50 ml INJECT ONETIME ONE Stop: 02/09/19 20:40 Nalbuphine HCl (Nubain) 10 mg IVPUSH Q2H PRN PRN Reason: pain Ondansetron HCl (Zofran) 4 mg IVPUSH ONETIME PRN PRN Reason: Nausea/Vomiting Sodium Chloride (Saline Flush) 10 ml FLUSH ASDIRECTED PRN PRN Reason: Keep Vein Open
[2019-02-10] MEDS ORDERED: LORazepam 0.5 MG Tab PO ONE (21:38)
--- NOTE | 2019-02-11 18:11 | PCM48HPAN ---
Post Anesthesia Note - EVALUATION WITHIN 48HRS OF ANESTHETIC Vital Signs in Normal Range: Yes Patient Participated in Evaluation: Yes Respiratory Function Stable: Yes Airway Patent: Yes Cardiovascular Function Stable: Yes Hydration Status Stable: Yes Pain Control Satisfactory: Yes Nausea and Vomiting Control Satisfactory: Yes Mental Status Recovered: Yes Pulse Rate: 74 Resp Rate: 14 Temperature: 36.4 C Blood Pressure: 118/92 - COMMENTS/OBSERVATIONS Free Text/Narrative:: No concerns r/t epidural upon patient discharge. Chart reviewed and discussed with OB as patient was discharged 02.10.19.
== END 2019-02-10 21:50 | disposition home or self-care (01) | DRG 807 ==
LOC: JD.OBCHECK 19:52 → JD.OB 19:52 → JD.OBCHECK 20:38 → JD.OB 20:39 → OBSVTOIN 02-10 00:50
PROVIDERS: ADMIT Obstetrics & Gynecology; ATTEND Obstetrics & Gynecology
PROC: 10E0XZZ Delivery of Products of Conception, External Approach (ICD-10-PCS; principal; 2019-02-10)
PROC: 10907ZC Drainage of Amniotic Fluid, Therapeutic from Products of Conception, Via Natural or Artificial Opening (ICD-10-PCS; 2019-02-10)
DX: O60.14X0 Preterm labor third trimester with preterm delivery third trimester, not applicable or unspecified (principal); Z37.0 Single live birth; Z3A.36 36 weeks gestation of pregnancy
CPT/HCPCS: 01967; 36415; 51702; 59025; 59409; 85025; 86592; A9270-GY; J2590; J3010; J3490; J7120

== ENCOUNTER 2020-08-30 15:04 | Emergency (ER) | payer MEDICAID | END 2020-08-30 15:20 | disposition left against medical advice (07) | LOC: JD.ED 15:04 | DX: Z53.21 Procedure and treatment not carried out due to patient leaving prior to being seen by health care provider (principal) ==

== ENCOUNTER 2020-08-30 16:07 | Emergency (ER) | payer MEDICAID ==
[2020-08-30 16:23] VITALS: BP 115/91; PULSE 78
--- NOTE | 2020-08-30 16:50 | EDM.PDOC ---
ED HPI GENERAL MEDICAL PROBLEM - General Chief Complaint: Chest Pain Stated Complaint: SOB/CHEST PAIN Time Seen by Provider: 08/30/20 16:26 Source of Information: Reports: Patient, RN Notes Reviewed - History of Present Illness INITIAL COMMENTS - FREE TEXT/NARRATIVE: 29 yr old female with onset of ant. mid chest pain today about 6 hrs ago. Discomfort is mild, primarily when she takes a deep breath. Has not been ill. No recent cough, fever, sore throat, abd pain, nausea, vomiting. she does have hx of asthma. Middle Chest Pain Score (Numeric/FACES): 4 - Related Data Allergies Allergy/AdvReac Type Severity Reaction Status Date / Time No Known Allergies Allergy Verified 08/30/20 16:23 Home Meds: Home Meds . [No Known Home Meds] 08/30/20 [History] Past Medical History - Past Health History Medical/Surgical History: Denies Medical/Surgical History Respiratory History: Reports: Asthma Genitourinary History: Reports: Other (See Below) Other Genitourinary History: UTI 01/[address] [facility] History: Reports: Psychiatric History: Reports: Anxiety Other Psychiatric History: Hx pp depression treated with medication, stopped taking shortly after. No present s/s depression. Immunologic History: Reports: None Social & Family History - Family History Family Medical History: Noncontributory Cardiac: Reports: [place] Other Cardiac Family History: grandmother - Tobacco Use Tobacco Use Status *Q: Never Tobacco User Second Hand Smoke Exposure: No - Caffeine Use Caffeine Use: Reports: Coffee - Recreational Drug Use Recreational Drug Use: No - Living Situation & Occupation Living situation: Reports: (), with Family (1 child) Occupation: Employed ([employer]) ED ROS GENERAL - Review of Systems Review Of Systems: See Below Constitutional: Denies: Fever, Chills, Diaphoresis HEENT: Reports: No Symptoms Respiratory: Reports: Pleuritic Chest Pain. Denies: Shortness of Breath, Wheezing, Cough Cardiovascular: Reports: Chest Pain GI/Abdominal: Denies: Abdominal Pain, Nausea, Vomiting Musculoskeletal: Denies: Neck Pain, Shoulder Pain, Arm Pain Skin: Reports: No Symptoms Neurological: Reports: No Symptoms ED EXAM, GENERAL - Physical Exam Exam: See Below General Appearance: Alert, No Apparent Distress Head: Atraumatic. No: Facial Swelling Neck: Supple Respiratory/Chest: No Respiratory Distress, Lungs Clear, Normal Breath Sounds, Other (very mild tenderness lower mid chest). No: Rhonchi, Wheezing Cardiovascular: Regular Rate, Rhythm GI/Abdominal: Soft, Non-Tender Extremities: Normal Inspection. No: Leg Pain Neurological: Alert, Oriented, No Motor/Sensory Deficits Skin Exam: Warm, Dry, Normal Color Course - Vital Signs Last Recorded V/S: Last Vital Signs Temp 96.9 F 08/30/20 16:20 Pulse 78 08/30/20 16:20 Resp 20 08/30/20 16:20 BP 115/91 H 08/30/20 16:20 Pulse Ox 100 08/30/20 16:20 - Re-Assessments/Exams Free Text/Narrative Re-Assessment/Exam: 08/30/20 17:04 cardiac moniter shows sinus rythm, rate in the 70's, no ectopy. O2 sats 100 %. No resp. distress. Cardio resp. exam normal as documented. Further workup not clinically indicated. Her inhaler has run out, prescription provided. Discharge instr. as documented. Departure - Departure Time of Disposition: 16:40 Disposition: Home, Self-Care 01 Clinical Impression: Chest wall pain Instructions: Chest Wall Pain Referrals: PCP,None [Primary Care Provider] - Forms: ED Department Discharge Additional Instructions: Your heart and lungs have checked out well today at this time. Tylenol or ibuprofen if needed for discomfort. Use inhaler as needed. Return to ED as needed if symptoms worsening in any way. Sepsis Event Note (ED) - Evaluation Sepsis Screening Result: No Definite Risk - Focused Exam Vital Signs: Vital Signs Temp Pulse Resp BP Pulse Ox 08/30/20 16:20 96.9 F 78 20 115/91 H 100
== END 2020-08-30 16:59 | disposition home or self-care (01) ==
LOC: JD.ED 16:07
DX: R07.89 Other chest pain (principal)
CPT/HCPCS: 99283; 99284

== ENCOUNTER 2020-09-23 09:16 | Emergency (ER) | payer MEDICAID ==
[2020-09-23 09:45] VITALS: BP 131/89; PULSE 72
[2020-09-23] MEDS ORDERED: Acetaminophen 325 MG Tab PO ONE (10:24)
[2020-09-23] MEDS ORDERED: Metoclopramide 10 MG/2 ML SDV IVPUSH ONE (10:25)
[2020-09-23] MEDS ORDERED: LORazepam 2 MG/ML SDV IV ONE (10:27)
[2020-09-23] MEDS ORDERED: Dextrose 5%-0.9% NaCl 1,000 ML IV SCH (10:30)
--- NOTE | 2020-09-23 10:31 | EDM.PDOC ---
ED HPI GENERAL MEDICAL PROBLEM - General Chief Complaint: General Stated Complaint: VOMITING,DIZZY AND SOB Time Seen by Provider: 09/23/20 10:15 Source of Information: Reports: Patient History Limitations: Reports: Language Barrier - History of Present Illness INITIAL COMMENTS - FREE TEXT/NARRATIVE: 29-year-old female presents to the ED feeling dizzy lightheaded and shaky. She is tremulous in the bed on my examination I chilled. She has no fever. She states she woke up feeling this way. Dizzy lightheaded weak. Symptoms would suggest she developed hyperventilation type symptoms with numbness and tingling in her hands feet and numb this in her perioral area. He is currently having a significant amount of lower abdominal cramping pain from dysmenorrhea. Menses started last night. She denies cough or sputum production. She denies any body with COVID-19 illness that she knows of. She did vomit once this morning of a small amount of bilious material. Diarrhea. Onset: Today, Sudden Onset Date: 09/23/20 Onset Time: 08:00 Duration: Hour(s):, Getting Worse Location: Reports: Generalized (Generally weak. Generally tremulous with numbness and tingling hands feet and periorally compatible with hyperventilation syndrome.) Quality: Reports: Other (Lower cramping abdominal pain due to menstrual pain) Severity: Moderate Improves with: Reports: None Worsens with: Reports: None Context: Reports: Other (Symptoms of hyperventilation syndrome. Continues to have tremors and shakes and chills.). Denies: Activity, Exercise, Lifting, Sick Contact, Trauma Associated Symptoms: Reports: Fever/Chills, Loss of Appetite, Malaise, Weakness. 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 And underwent an endocervical biopsy by Dr. Bernabe Ramirez on September 17. It revealed grade 1 cervical changes. 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 No present s/s depression. 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 Denies: Fever HEENT: Reports: No Symptoms Respiratory: Reports: Shortness of Breath Cardiovascular: Denies: Chest Pain, Blood Pressure Problem, Claudication, Dyspnea on Exertion, Edema, Lightheadedness, Orthopnea, Palpitations Endocrine: Reports: No Symptoms GI/Abdominal: Reports: Nausea, Vomiting (1 emesis this morning of a small amount of bilious material.) : Reports: Other (Early on her menstrual cycle with significant dysmenorrhea cramping pain). Denies: Dysuria, Frequency, Urgency Musculoskeletal: Reports: No Symptoms Skin: Reports: No Symptoms Neurological: Reports: Confusion, Dizziness, Numbness, Tingling (Numbness and tingling hands feet and periorally compatible with hyperventilation syndrome), Other ED EXAM, GENERAL - Physical Exam Exam: See Below Exam Limited By: No Limitations General Appearance: Alert, WD/WN, Mild Distress, Other (Very tremulous and shaking appears to be exhibiting some mild rigors. Is afebrile at this time.) Eye Exam: Bilateral Eye: Normal Inspection (No blepharal pallor or scleral icterus.), PERRL Ears: Normal TMs (Normal) Throat/Mouth: Other Head: Atraumatic, Normocephalic Neck: Normal Inspection (Is mildly dry and coated. Oropharynx otherwise normal), Supple, Non-Tender, Full Range of Motion. No: Carotid Bruit, Lymphadenopathy (L), Lymphadenopathy (R) Respiratory/Chest: Lungs Clear, Normal Breath Sounds (Tachypnea at rest 24 to 26/min with O2 sats 100% room air a mild hyperventilation.), No Accessory Muscle Use, Chest Non-Tender, Respiratory Distress Cardiovascular: Normal Peripheral Pulses, Regular Rate, Rhythm, No Edema, No Gallop, No Murmur, No Rub Peripheral Pulses: 3+: Carotid (L), Carotid (R), Posterior Tibial (L), Posterior Tibial (R), Dorsalis Pedis (L), Dorsalis Pedis (R) GI/Abdominal: Normal Bowel Sounds, Soft, Non-Tender, No Organomegaly, No Abnormal Bruit, No Mass, Pelvis Stable, Other (Something about having a biopsy done last week perhaps on her cervix as there was no abdominal wounds to indicate a biopsy for endometriosis.). No: Guarding, Rigid, Rebound, Tender (Female) Exam: Vaginal Bleeding (We will cycle last night.) Back Exam: CVA Tenderness (R). No: CVA Tenderness (L), Decreased Range of Motion (Mild right costovertebral angle tenderness.) Extremities: Normal Inspection, Normal Range of Motion, Non-Tender, No Pedal Edema Neurological: Alert, Oriented, CN II-XII Intact, Normal Cognition, Other (Spoken Estonian) Psychiatric: Normal Affect, Normal Mood Skin Exam: Warm, Dry, Intact, Normal Color, No Rash Course - Vital Signs Last Recorded V/S: Last Vital Signs Temp 35.7 C L 09/23/20 09:42 Pulse 72 09/23/20 09:42 Resp 24 H 09/23/20 09:42 BP 131/89 09/23/20 09:42 Pulse Ox 100 09/23/20 09:42 - Orders/Labs/Meds Orders: Active Orders 24 hr Category Date Time Status CULTURE BLOOD [BC] Stat Lab 09/23/20 10:52 Received CULTURE BLOOD [BC] Stat Lab 09/23/20 10:58 Received Dextrose 5%-0.9% NaCl [Dextrose 5%-Normal Saline] 1,000 Med 09/23/20 10:30 Active ml IV ASDIRECTED Blood Culture x2 Reflex Set [OM.PC] Stat Oth 09/23/20 10:25 Ordered Medication Orders Dextrose/Sodium Chloride (Dextrose 5%-Normal Saline) 1,000 mls @ 999 mls/hr IV ASDIRECTED EDDIE Last Admin: 09/23/20 10:55 Dose: 999 mls/hr Documented by: DINH Labs: Laboratory Tests 09/23/20 09/23/20 09/23/20 Range/Units 10:58 10:58 10:58 WBC 8.00 (3.98-10.04) K/mm3 RBC 4.78 (3.98-5.22) M/mm3 Hgb 13.7 (11.2-15.7) gm/dl Hct 41.3 (34.1-44.9) % MCV 86.4 (79.4-94.8) fl MCH 28.7 (25.6-32.2) pg MCHC 33.2 (32.2-35.5) g/dl RDW Std Deviation 39.8 (36.4-46.3) fL Plt Count 344 D (182-369) K/mm3 MPV 9.9 (9.4-12.3) fl Neut % (Auto) 74.2 H (34.0-71.1) % Lymph % (Auto) 17.6 L (19.3-51.7) % [place] % (Auto) 7.0 (4.7-12.5) % Eos % (Auto) 0.5 L (0.7-5.8) Baso % (Auto) 0.4 (0.1-1.2) % Neut # (Auto) 5.94 (1.56-6.13) K/mm3 Lymph # (Auto) 1.41 (1.18-3.74) K/mm3 [place] # (Auto) 0.56 H (0.24-0.36) K/mm3 Eos # (Auto) 0.04 (0.04-0.36) K/mm3 Baso # (Auto) 0.03 (0.01-0.08) K/mm3 Sodium 137 (136-145) mEq/L Potassium 3.6 (3.5-5.1) mEq/L Chloride 102 (98-107) mEq/L Carbon Dioxide 21 (21-32) mEq/L Anion Gap 17.6 H (5-15) BUN 17 (7-18) mg/dL Creatinine 1.0 (0.55-1.02) mg/dL Est Cr Clr Drug Dosing 88.95 mL/min Estimated GFR (MDRD) > 60 (>60) mL/min BUN/Creatinine Ratio 17.0 (14-18) Glucose 96 (74-106) mg/dL Calcium 9.5 (8.5-10.1) mg/dL Magnesium 2.0 (1.8-2.4) mg/dl Total Bilirubin 1.0 (0.2-1.0) mg/dL AST 11 L (15-37) U/L ALT 17 (14-59) U/L Alkaline Phosphatase 54 (46-116) U/L C-Reactive Protein 2.0 H* (<1.0) mg/dL Total Protein 8.0 (6.4-8.2) g/dl Albumin 4.2 (3.4-5.0) g/dl Globulin 3.8 gm/dL Albumin/Globulin Ratio 1.1 (1-2) HCG, Qual Negative (NEGATIVE) Urine Color (Yellow) Urine Appearance (Clear) Urine pH (5.0-8.0) Ur Specific [place] (1.005-1.030) Urine Protein (Negative) Urine Glucose (UA) (Negative) Urine Ketones (Negative) Urine Occult Blood (Negative) Urine Nitrite (Negative) Urine Bilirubin (Negative) Urine Urobilinogen (0.2-1.0) Ur Leukocyte Esterase (Negative) Urine RBC (0-5) /hpf Urine WBC (0-5) /hpf Ur Squamous Epith Cells (0-5) /hpf Amorphous Sediment (NOT SEEN) /hpf Urine Bacteria (FEW) /hpf Urine Mucus (FEW) /hpf 09/23/20 Range/Units 11:46 WBC (3.98-10.04) K/mm3 RBC (3.98-5.22) M/mm3 Hgb (11.2-15.7) gm/dl Hct (34.1-44.9) % MCV (79.4-94.8) fl MCH (25.6-32.2) pg MCHC (32.2-35.5) g/dl RDW Std Deviation (36.4-46.3) fL Plt Count (182-369) K/mm3 MPV (9.4-12.3) fl Neut % (Auto) (34.0-71.1) % Lymph % (Auto) (19.3-51.7) % [place] % (Auto) (4.7-12.5) % Eos % (Auto) (0.7-5.8) Baso % (Auto) (0.1-1.2) % Neut # (Auto) (1.56-6.13) K/mm3 Lymph # (Auto) (1.18-3.74) K/mm3 [place] # (Auto) (0.24-0.36) K/mm3 Eos # (Auto) (0.04-0.36) K/mm3 Baso # (Auto) (0.01-0.08) K/mm3 Sodium (136-145) mEq/L Potassium (3.5-5.1) mEq/L Chloride (98-107) mEq/L Carbon Dioxide (21-32) mEq/L Anion Gap (5-15) BUN (7-18) mg/dL Creatinine (0.55-1.02) mg/dL Est Cr Clr Drug Dosing mL/min Estimated GFR (MDRD) (>60) mL/min BUN/Creatinine Ratio (14-18) Glucose (74-106) mg/dL Calcium (8.5-10.1) mg/dL Magnesium (1.8-2.4) mg/dl Total Bilirubin (0.2-1.0) mg/dL AST (15-37) U/L ALT (14-59) U/L Alkaline Phosphatase (46-116) U/L C-Reactive Protein (<1.0) mg/dL Total Protein (6.4-8.2) g/dl Albumin (3.4-5.0) g/dl Globulin gm/dL Albumin/Globulin Ratio (1-2) HCG, Qual (NEGATIVE) Urine Color Yellow (Yellow) Urine Appearance Clear (Clear) Urine pH 8.5 H (5.0-8.0) Ur Specific [place] 1.020 (1.005-1.030) Urine Protein 1+ H (Negative) Urine Glucose (UA) Trace H (Negative) Urine Ketones Trace H (Negative) Urine Occult Blood 3+ H (Negative) Urine Nitrite Negative (Negative) Urine Bilirubin Negative (Negative) Urine Urobilinogen 0.2 (0.2-1.0) Ur Leukocyte Esterase Trace H (Negative) Urine RBC >100 H (0-5) /hpf Urine WBC 5-10 H (0-5) /hpf Ur Squamous Epith Cells 0-5 (0-5) /hpf Amorphous Sediment Rare H (NOT SEEN) /hpf Urine Bacteria Few (FEW) /hpf Urine Mucus Not seen (FEW) /hpf Meds: Medications Generic Name Dose Route Start Last Admin Trade Name Freq PRN Reason Stop Dose Admin Dextrose/Sodium Chloride 1,000 mls @ 999 mls/hr 09/23/20 10:30 09/23/20 10:55 Dextrose 5%-Normal Saline IV 999 mls/hr ASDIRECTED EDDIE Administration Discontinued Medications Generic Name Dose Route Start Last Admin Trade Name Freq PRN Reason Stop Dose Admin Acetaminophen 975 mg 09/23/20 10:24 09/23/20 10:43 Tylenol PO 09/23/20 10:25 975 mg ONETIME ONE Administration Lorazepam 0.5 mg 09/23/20 10:27 09/23/20 10:53 Ativan IV 09/23/20 10:28 0.5 mg ONETIME ONE Administration Metoclopramide HCl 7.5 mg 09/23/20 10:25 09/23/20 10:54 Reglan IVPUSH 09/23/20 10:26 7.5 mg ONETIME ONE Administration - Radiology Interpretation Free Text/Narrative:: 29-year-old female presents to the ED complaining of diffuse onset of illness this morning felt dizzy lightheaded which then precipitated hyperventilation syndrome with diffuse numbness tingling in her extremities and periorally. At the time my exam she was tremulous and exhibiting chills or rigors. She was afebrile. She states she had some form of gynecological procedure last week I am suspecting she may have had some form of cervical surgery or biopsy. She has no abdominal wounds. Benign chest and abdomen exam. She is hyperventilating at this time. She reports one emesis this morning of small amount of bilious material. Plan IV D5 normal saline at open. Given Reglan 7.5 mg IV with Ativan 0.5 mg IV. Routine labs to be performed and a urinalysis. Be given 9 7 5 mg of Tylenol orally. - Re-Assessments/Exams Free Text/Narrative Re-Assessment/Exam: 09/23/20 11:49 White blood cell count is 8.0. Differential 74.2% neutrophils. Hemoglobin is 13.7 with hematocrit of 41.3 platelet counts 344,000. Sodium 137 with potassium 3.6 chloride 102 with a bicarb of 21. Anion gap is 17.6. BUN is 17 with a creatinine of 1.0 GFR is greater than 60. Glucose 96 with a calcium of 9.5 magnesium 2.0 liver function is normal C-reactive protein 2.0 total protein 8.0 beta-hCG is negative. 09/23/20 12:25 reports she is feeling much better.. No longer has the chills and she is did not develop a fever. It appears that this was most likely an anxiety reaction and hyperventilation syndrome. Awaiting a urinalysis since she did have an cervical biopsy done on 17 September. 09/23/20 12:27 Alysis shows a 0.5 pH. 1+ proteinuria trace of glucose trace of ketones 3+ occult blood due to menses starting today trace of leukocyte esterase . The urine micro is pending. Departure - Departure Time of Disposition: 12:42 Disposition: Home, Self-Care 01 Condition: Fair Clinical Impression: Panic attack, Hyperventilation syndrome - Discharge Information *COPY OF PRESCRIPTION DRUG MONITORING REPORT IN PATIENT ISSA: Not Applicable Prescriptions: Ondansetron [Zofran] 4 mg BUCCAL Q6H PRN #5 tab PRN Reason: nausea or vomiting Instructions: Panic Attack, [id number] Referrals: PCP,None [Primary Care Provider] - Forms: ED Department Discharge Additional Instructions: Evaluation in the emergency room this morning in regards to development of severe hyperventilation syndrome this morning at home which involve numbness and tingling of all of your extremities and particularly around your mouth associate with dizziness and a feeling of going to faint. When you arrived here you were very tremulous as if you were very cold. You were still hyperventilating at that time. You were treated with intravenous fluids. Lab tests were done to make sure there was no infection from last week's endocervical biopsy procedure. It is possible this attack was set off by diffuse lower abdominal cramping pain from menses starting today. However no signs of infection were identified. You were treated with intravenous Ativan 0.5 mg and Reglan 7.5 mg IV for nausea vomiting relief. Suggest home to rest. Fluids today such as Gatorade or Powerade. A prescription was written for Zofran 4 mg to be taken under the tongue every 4-6 hours if necessary for further nausea relief. It is possible you are developing an early viral gastroenteritis syndrome. Follow-up with personal care provider if any further problems occur. Sepsis Event Note (ED) - Evaluation Sepsis Screening Result: No Definite Risk - Focused Exam Vital Signs: Vital Signs Temp Pulse Resp BP Pulse Ox 09/23/20 09:42 35.7 C L 72 24 H 131/89 100 - My Orders Last 24 Hours: My Active Orders 09/23/20 10:25 Blood Culture x2 Reflex Set [OM.PC] Stat 09/23/20 10:30 Dextrose 5%-0.9% NaCl [Dextrose 5%-Normal Saline] 1,000 ml IV ASDIRECTED 09/23/20 10:52 CULTURE BLOOD [BC] Stat 09/23/20 10:58 CULTURE BLOOD [BC] Stat - Assessment/Plan Last 24 Hours: My Active Orders 09/23/20 10:25 Blood Culture x2 Reflex Set [OM.PC] Stat 09/23/20 10:30 Dextrose 5%-0.9% NaCl [Dextrose 5%-Normal Saline] 1,000 ml IV ASDIRECTED 09/23/20 10:52 CULTURE BLOOD [BC] Stat 09/23/20 10:58 CULTURE BLOOD [BC] Stat
== END 2020-09-23 12:57 | disposition home or self-care (01) ==
LOC: JD.ED 09:16
DX: F41.0 Panic disorder [episodic paroxysmal anxiety] (principal); F45.8 Other somatoform disorders; J45.909 Unspecified asthma, uncomplicated
CPT/HCPCS: 36415; 80053; 81001; 83735; 84703; 85025; 86140; 87040; 96374; 96375; 99284; A9270; J2060; J2765; J7042

== ENCOUNTER 2020-12-14 13:01 | Emergency (ER) | payer MEDICAID ==
[2020-12-14 13:11] VITALS: BP 133/99; PULSE 77
[2020-12-14] MEDS ORDERED: Sodium Chloride 0.9% 10 ML Syringe FLUSH PRN (13:15)
[2020-12-14] MEDS ORDERED: diphenhydrAMINE 50 MG/ML SDV IVPUSH ONE (13:16)
[2020-12-14] MEDS ORDERED: Prochlorperazine 10 MG/2 ML SDV IVPUSH ONE (13:16)
[2020-12-14] MEDS ORDERED: Ketorolac 30 MG/ML SDV IVPUSH ONE (13:16)
--- NOTE | 2020-12-14 14:32 | EDM.PDOC ---
ED HPI GENERAL MEDICAL PROBLEM - General Chief Complaint: Neurological Problem Stated Complaint: HEAD PAIN AND FACIAL NUMBNESS Time Seen by Provider: 12/14/20 13:08 Source of Information: Reports: Patient History Limitations: Reports: No Limitations - History of Present Illness INITIAL COMMENTS - FREE TEXT/NARRATIVE: The patient presents with a headache. She was driving about an hour ago when this started. She first developed a right sided headache and then she developed numbness and tingling to the right side of her face. She has no numbness or weakness in her arms or legs. She has no fever, chills, cough, chest pain, shortness of breath, abdominal pain, nausea and vomiting. She does have a history of migraines but this does not feel the same. Onset: Sudden Duration: Hour(s): Location: Reports: Head Quality: Reports: Sharp Severity: Severe Improves with: Reports: None Worsens with: Reports: None Associated Symptoms: Reports: Headaches. Denies: Chest Pain, Cough, Fever/Chills, Nausea/Vomiting, Shortness of Breath Right Head Pain Score (Numeric/FACES): 5 - Related Data Allergies Allergy/AdvReac Type Severity Reaction Status Date / Time No Known Allergies Allergy Verified 12/14/20 13:11 Home Meds: Home Meds Ondansetron [Zofran] 4 mg BUCCAL Q6H PRN #5 tab 09/23/20 [Rx] Past Medical History - Past Health History Medical/Surgical History: Denies Medical/Surgical History Respiratory History: Reports: Asthma Genitourinary History: Reports: Other (See Below) Other Genitourinary History: UTI 01/2019 treated.. And underwent an endocervical biopsy by Dr. Bernabe Ramirez on September 17. It revealed grade 1 cervical changes. 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 No present s/s depression. 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[facility]) ED ROS GENERAL - Review of Systems Review Of Systems: See Below Constitutional: Reports: No Symptoms HEENT: Reports: No Symptoms Respiratory: Reports: No Symptoms Cardiovascular: Reports: No Symptoms Endocrine: Reports: No Symptoms GI/Abdominal: Reports: No Symptoms : Reports: No Symptoms Musculoskeletal: Reports: No Symptoms Skin: Reports: No Symptoms Neurological: Reports: Headache ED EXAM, NEURO - Physical Exam Exam: See Below Exam Limited By: No Limitations General Appearance: Alert, No Apparent Distress Ears: Normal External Exam Nose: Normal Inspection Head Exam: Atraumatic, Normocephalic Neck: Normal Inspection Respiratory/Chest: No Respiratory Distress, Lungs Clear, Normal Breath Sounds Cardiovascular: Regular Rate, Rhythm, No Edema, No Murmur GI/Abdominal: Soft, Non-Tender, No Organomegaly, No Mass Neurological: Oriented x 3, Other (No weakness or numbnes in her arms or legs. She has some gross numbnes to the right side of her face. She has no facial weakness and she has no trouble speaking.) Course - Vital Signs Last Recorded V/S: Last Vital Signs Temp 97.1 F 12/14/20 13:06 Pulse 77 12/14/20 13:06 Resp 16 12/14/20 13:06 BP 133/99 H 12/14/20 13:06 Pulse Ox 99 12/14/20 13:06 - Orders/Labs/Meds Orders: Active Orders 24 hr Category Date Time Status Peripheral IV Care [RC] . DIRECTED Care 12/14/20 13:16 Active Head wo Cont [CT] Stat Exams 12/14/20 13:16 Taken Sodium Chloride 0.9% [Saline Flush] Med 12/14/20 13:15 Active 10 ml FLUSH ASDIRECTED PRN Peripheral IV Insertion Adult [OM.PC] Routine Oth 12/14/20 13:15 Ordered Medication Orders Sodium Chloride (Saline Flush) 10 ml FLUSH ASDIRECTED PRN PRN Reason: Keep Vein Open Last Admin: 12/14/20 13:45 Dose: 10 ml Documented by: WILBER Meds: Medications Generic Name Dose Route Start Last Admin Trade Name Freq PRN Reason Stop Dose Admin Sodium Chloride 10 ml 12/14/20 13:15 12/14/20 13:45 Saline Flush FLUSH 10 ml ASDIRECTED PRN Administration Keep Vein Open Discontinued Medications Generic Name Dose Route Start Last Admin Trade Name Nicol PRN Reason Stop Dose Admin Diphenhydramine HCl 50 mg 12/14/20 13:16 12/14/20 13:45 Benadryl IVPUSH 12/14/20 13:17 50 mg ONETIME ONE Administration Ketorolac Tromethamine 30 mg 12/14/20 13:16 12/14/20 13:44 Toradol IVPUSH 12/14/20 13:17 30 mg ONETIME ONE Administration Prochlorperazine Edisylate 10 mg 12/14/20 13:16 12/14/20 13:45 Compazine IVPUSH 12/14/20 13:17 10 mg ONETIME ONE Administration - Re-Assessments/Exams Free Text/Narrative Re-Assessment/Exam: 12/14/20 14:37 I ordered an IV saline lock, toradol 30mg IV, compazine 10mg IV, benadryl 50mg IV, and a CT of her head. The CT of her head shows no acute intracranial abnormality. She does feel better. Departure - Departure Time of Disposition: 14:45 Disposition: Home, Self-Care 01 Condition: Good Clinical Impression: Migraine Qualifiers: Migraine type: other Status migrainosus presence: without status migrainosus Intractability: not intractable Qualified Code(s): G43.809 - Other migraine, not intractable, without status migrainosus - Discharge Information *PRESCRIPTION DRUG MONITORING PROGRAM REVIEWED*: Not Applicable *COPY OF PRESCRIPTION DRUG MONITORING REPORT IN PATIENT ISSA: Not Applicable Referrals: PCP,None [Primary Care Provider] - Forms: ED Department Discharge Additional Instructions: Go home and rest. Take tylenol or motrin for pain. Please return if you are worse. Sepsis Event Note (ED) - Evaluation Sepsis Screening Result: No Definite Risk - Focused Exam Vital Signs: Vital Signs Temp Pulse Resp BP Pulse Ox 12/14/20 13:06 97.1 F 77 16 133/99 H 99 - My Orders Last 24 Hours: My Active Orders 12/14/20 13:15 Sodium Chloride 0.9% [Saline Flush] 10 ml FLUSH ASDIRECTED PRN Peripheral IV Insertion Adult [OM.PC] Routine 12/14/20 13:16 Peripheral IV Care [RC] . DIRECTED Head wo Cont [CT] Stat - Assessment/Plan Last 24 Hours: My Active Orders 12/14/20 13:15 Sodium Chloride 0.9% [Saline Flush] 10 ml FLUSH ASDIRECTED PRN Peripheral IV Insertion Adult [OM.PC] Routine 12/14/20 13:16 Peripheral IV Care [RC] . DIRECTED Head wo Cont [CT] Stat
--- NOTE | 2020-12-15 09:11 | CT ---
Head CT Technique: Multiple axial sections through the brain were obtained. Comparison: No prior intracranial imaging is available. Findings: Ventricles along with basal cisterns and sulci over the convexities appear within normal limits for the patient's age. No abnormal parenchymal densities are seen. No evidence of intracranial hemorrhage. No midline shift or mass-effect is appreciated. Bone window settings were reviewed which show the visualized mastoid and paranasal sinuses to show nothing acute. No acute calvarial finding is appreciated. Impression: 1. Nothing acute is identified on noncontrast head CT study. Diagnostic code #1 I agree with preliminary report from [facility], finalized on 12/14/20, 3:02 PM BATON [id number]
== END 2020-12-14 14:50 | disposition home or self-care (01) ==
LOC: JD.ED 13:01
DX: G43.809 Other migraine, not intractable, without status migrainosus (principal); J45.909 Unspecified asthma, uncomplicated
CPT/HCPCS: 70450; 96374; 96375; 99283; J0780; J1200; J1885; 99284

== ENCOUNTER 2021-05-09 10:50 | Emergency (ER) | payer MEDICAID ==
[2021-05-09 10:59] VITALS: BP 128/85; PULSE 65
[2021-05-09] MEDS ORDERED: Ketorolac 60 MG/2 ML SDV IM ONE (11:11)
[2021-05-09] MEDS ORDERED: Albuterol 6.7 GM Inhaler INH ONE (11:25)
--- NOTE | 2021-05-09 11:25 | EDM.PDOC ---
ED HPI GENERAL MEDICAL PROBLEM - General Chief Complaint: Respiratory Problem Stated Complaint: RIGHT SIDE PAIN Time Seen by Provider: 05/09/21 11:00 Source of Information: Reports: Patient History Limitations: Reports: No Limitations - History of Present Illness INITIAL COMMENTS - FREE TEXT/NARRATIVE: 30-year-old female presents to the emergency department with complaints of right rib pain. Patient states she was seen at [facility] 2 days ago with cough, shortness of breath and right-sided chest discomfort. At that time she was diagnosed with pneumonia and started on antibiotics. She states that she has been taking her antibiotics as prescribed over the course the past 2 days. However she states she has developed worsening right rib pain. She denies any fever, chills, nausea, vomiting or diarrhea. She denies any abdominal pain. She states that she does have a productive cough of clear sputum. She denies any shortness of breath. She denies taking Tylenol or ibuprofen for the discomfort however she states she has not been taking this because it does not work. She states she is otherwise healthy and does not take any other prescription medications. Right Chest Pain Score (Numeric/FACES): 7 - Related Data Allergies Allergy/AdvReac Type Severity Reaction Status Date / Time No Known Allergies Allergy Verified 05/09/21 10:59 Home Meds: Home Meds Azithromycin 250 mg PO DAILY 05/09/21 [History] Benzonatate 200 mg PO TID PRN 05/09/21 [History] Past Medical History - Past Health History Medical/Surgical History: Denies Medical/Surgical History Respiratory History: Reports: Asthma, Pneumonia, Recurrent Genitourinary History: Reports: Other (See Below) Other Genitourinary History: UTI 01/2019 treated.. And underwent an endocervical biopsy by Dr. Bernabe Ramirez on September 17. It revealed grade 1 cervical changes. 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) ED ROS GENERAL - Review of Systems Review Of Systems: Comprehensive ROS is negative, except as noted in HPI. ED EXAM, GENERAL - Physical Exam Exam: See Below Exam Limited By: No Limitations General Appearance: Alert, WD/WN, No Apparent Distress Ears: Normal External Exam, Hearing Grossly Normal Nose: Normal Inspection Throat/Mouth: Normal Inspection, Normal Lips, Normal Voice, No Airway Compromise Head: Atraumatic Neck: Normal Inspection, Supple, Non-Tender, Full Range of Motion Respiratory/Chest: No Respiratory Distress, No Accessory Muscle Use, Wheezing (fine exp wheeze noted right anterior lobe). No: Lungs Clear, Normal Breath Sounds, Chest Non-Tender Cardiovascular: Normal Peripheral Pulses, Regular Rate, Rhythm, No Edema, No Murmur GI/Abdominal: Normal Bowel Sounds, Soft, Non-Tender, No Distention (Female) Exam: Deferred Rectal (Female) Exam: Deferred Back Exam: Normal Inspection, Full Range of Motion Extremities: Normal Inspection, Normal Range of Motion, Non-Tender, No Pedal Edema, Normal Capillary Refill Neurological: Alert, Oriented, Normal Cognition, Normal Reflexes Psychiatric: Normal Affect, Normal Mood Skin Exam: Warm, Dry, Intact, Normal Color, No Rash Lymphatic: No Adenopathy Course - Vital Signs Text/Narrative:: Again, 30-year-old female who complains of right rib pain diagnosed with pneumonia 2 days ago. I suspect this is due to pleuritic type of pain. She states that the pain is worse when going from lying to sitting or coughing. She states is worse when taking a deep breath. She does have some expiratory wheezes noted anteriorly on the right side. Otherwise lungs are unremarkable. Remainder of physical exam is unremarkable. I have ordered a portable view of the chest, patient will receive 60 of Toradol IM and I will order her an albuterol MDI. Last Recorded V/S: Last Vital Signs Temp 97.8 F 05/09/21 10:56 Pulse 65 05/09/21 10:56 Resp 18 05/09/21 10:56 BP 128/85 05/09/21 10:56 Pulse Ox 100 05/09/21 10:56 - Orders/Labs/Meds Orders: Active Orders 24 hr Category Date Time Status RT Incentive Spirometry [RC] Q1HWA Care 05/09/21 11:41 Active RT Post Treatment Assessment [RC] Click to Edit Care 05/09/21 11:26 Active RT Pre-Treatment Assessment [RC] Click to Edit Care 05/09/21 11:26 Active Chest 1V Frontal [CR] Stat Exams 05/09/21 11:11 Taken Meds: Medications Discontinued Medications Generic Name Dose Route Start Last Admin Trade Name Nicol PRN Reason Stop Dose Admin Albuterol 0 gm 05/09/21 11:25 05/09/21 11:35 Albuterol 6.7 Gm Inhaler INH 05/09/21 11:26 2 inhaler ONETIME ONE Administration Ketorolac Tromethamine 60 mg 05/09/21 11:11 05/09/21 11:24 Ketorolac 60 Mg/2 Ml Sdv IM 05/09/21 11:12 60 mg ONETIME ONE Administration - Re-Assessments/Exams Free Text/Narrative Re-Assessment/Exam: 05/09/21 11:38 Portable view of the chest viewed by myself and Dr. Otto and nothing acute is appreciated. Formal radiology report is pending. 05/09/21 12:38 Patient states that she is feeling much better after receiving the Toradol. She will be discharged to home. I will also send her home with an incentive spirometer. Respiratory therapy has educated her regarding the use of this. I would recommend that she takes ibuprofen 600 mg every 6 hours for the next 48 hours. Departure - Departure Time of Disposition: 12:38 Disposition: Home, Self-Care 01 Condition: Good Clinical Impression: Pleurisy - Discharge Information Instructions: Pleurisy, [id number], Community-Acquired Pneumonia, Adult, [id number] Referrals: PCP,None [Primary Care Provider] - Forms: ED Department Discharge Additional Instructions: You were seen in the emergency department today with complaints of right rib pain. A chest x-ray was completed and you received pain medication. Chest x- ray does not show any current pneumonia however this could have resolved as you have been antibiotics for a couple of days. The cause of your pain is likely due to pleurisy. There could be some inflammation going on in the right lung which is causing you discomfort. Recommend that you take ibuprofen 600 mg every 6 hours starting at 5:00 this evening. Would like you to take this for the next 48 hours and will help to decrease pain and inflammation. Continue taking your antibiotics as prescribed. You can take the albuterol inhaler 2 puffs every 4 hours as needed for shortness of breath or wheezing. Also recommend that you use the incentive spirometer 10 times every hour while awake. Sepsis Event Note (ED) - Evaluation Sepsis Screening Result: No Definite Risk - Focused Exam Vital Signs: Vital Signs Temp Pulse Resp BP Pulse Ox 05/09/21 10:56 97.8 F 65 18 128/85 100 - My Orders Last 24 Hours: My Active Orders 05/09/21 11:11 Chest 1V Frontal [CR] Stat 05/09/21 11:26 RT Post Treatment Assessment [RC] Click to Edit RT Pre-Treatment Assessment [RC] Click to Edit 05/09/21 11:41 RT Incentive Spirometry [RC] Q1HWA - Assessment/Plan Last 24 Hours: My Active Orders 05/09/21 11:11 Chest 1V Frontal [CR] Stat 05/09/21 11:26 RT Post Treatment Assessment [RC] Click to Edit RT Pre-Treatment Assessment [RC] Click to Edit 05/09/21 11:41 RT Incentive Spirometry [RC] Q1HWA
--- NOTE | 2021-05-10 11:45 | CR ---
Chest: Portable view of the chest was obtained. Comparison: Prior chest x-ray of 07/12/17. Heart size and mediastinum are normal. Lungs are clear with no acute parenchymal change. Minimal scoliosis is noted. No acute osseous abnormality is noted. Impression: 1. Nothing acute is seen on portable chest x-ray. Diagnostic code #1
== END 2021-05-09 13:04 | disposition home or self-care (01) ==
LOC: JD.ED 10:50
DX: R09.1 Pleurisy (principal)
CPT/HCPCS: 71045; 96372; 99283; A9270; J1885; 99284

== ENCOUNTER 2021-07-24 10:06 | Emergency (ER) | payer MEDICAID ==
[2021-07-24 10:18] VITALS: BP 133/78; PULSE 66
--- NOTE | 2021-07-24 10:33 | EDM.PDOC ---
ED HPI GENERAL MEDICAL PROBLEM - General Chief Complaint: Lower Extremity Injury/Pain Stated Complaint: LT KNEE PAIN Time Seen by Provider: 07/24/21 10:27 Source of Information: Reports: Patient History Limitations: Reports: No Limitations - History of Present Illness INITIAL COMMENTS - FREE TEXT/NARRATIVE: 30-year-old female attends the ED complaining of diffuse left anterior knee pain around the kneecap for the last month. 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 She is also been working out at the gym in the past but has been unable to perform leg muscle exercises due to painful left knee. She knows of no specific injury. She was seen approximately 2 weeks ago and placed on meloxicam 15 mg once daily for 14 days of which she has used 12 days of therapy with no relief of the pain. Pain this morning was particularly acute when she got up in the 1st few steps almost caused her to fall. This is the reason she attended the ED. Onset: Gradual Onset Date: 06/24/21 (She believes painful left knee started about a month ago) Duration: Week(s):, Getting Worse Location: Reports: Lower Extremity, Left (Particular around the kneecap) Quality: Reports: Ache, Other (No catching with walking. Pain is with flexing the knee) Severity: Moderate (around the kneecap) Improves with: Reports: Rest Worsens with: Reports: Other Context: Reports: Other (Possible overuse injury in the gym.). 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 Left Knee Pain Score (Numeric/FACES): 5 - Related Data Allergies Allergy/AdvReac Type Severity Reaction Status Date / Time No Known Allergies Allergy Verified 07/24/21 10:13 Home Meds: Home Meds Diclofenac Sodium [Voltaren] 75 mg PO BIDMEALS #12 tab.cr 07/24/21 [Rx] Famotidine [Pepcid] 20 mg PO BEDTIME #14 tab 07/24/21 [Rx] predniSONE [Prednisone] 20 mg PO ASDIRECTED #15 tablet 07/24/21 [Rx] Past Medical History - Past Health History Medical/Surgical History: Denies Medical/Surgical History Respiratory History: Reports: Asthma, Pneumonia, Recurrent Genitourinary History: Reports: Other (See Below) Other Genitourinary History: UTI 01/2019 treated.. And underwent an endocervical biopsy by Dr. Bernabe Ramirez on September 17. It revealed grade 1 cervical changes. 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[facility]) Review of Systems - Review of Systems Review Of Systems: See Below Constitutional: Reports: No Symptoms Eyes: Reports: No Symptoms Ears: Reports: No Symptoms Nose: Reports: No Symptoms Mouth/Throat: Reports: No Symptoms Respiratory: Reports: No Symptoms Cardiovascular: Reports: No Symptoms GI/Abdominal: Reports: No Symptoms Genitourinary: Reports: No Symptoms Musculoskeletal: Reports: No Symptoms Skin: Reports: No Symptoms Neurological: Reports: No Symptoms Psychiatric: Reports: No Symptoms ED EXAM, GENERAL - Physical Exam Exam: See Below Exam Limited By: No Limitations General Appearance: Alert, WD/WN, No Apparent Distress, Other (Temperature is 36.1 degrees. Heart rate 66 and sinus respiratory 16 with O2 sats of 100% room air. BP 1 3378) Eye Exam: Right Eye: PERRL, Bilateral Eye: Normal Inspection (No blepharal pallor or scleral icterus) Extremities: Normal Range of Motion (Painful range of motion with flexion particularly of the left knee. Pain lateral and medial aspect of the patella. There is no laxity of the cruciates or MCL or lateral collateral ligament.), Other (Examination of the left lower extremity shows normal quadriceps bulk bilaterally. Pain is localized to the lateral and medial aspect of the patella where it is encapsulated by the quadriceps muscle and tendon. Mild pain at tendon insertion site and infrapatellar bursa. No prepatellar bursitis no ) Neurological: Alert, Oriented, CN II-XII Intact, Normal Cognition Psychiatric: Normal Affect, Normal Mood, Other Skin Exam: Warm (Mildly apprehensive), Dry, Intact, Normal Color, No Rash Course - Vital Signs Last Recorded V/S: Last Vital Signs Temp 36.1 C 07/24/21 10:16 Pulse 66 07/24/21 10:16 Resp 16 07/24/21 10:16 BP 133/78 07/24/21 10:16 Pulse Ox 100 07/24/21 10:16 - Radiology Interpretation Free Text/Narrative:: 30-year-old female presents to the ED with a 1 month history of painful left knee with no known injury. She has been on a trial of meloxicam 15 mg daily for the last 12 days with no improvement in the pain. Pain is worsened by flexing the left knee particular going up and down stairs. She was working out the gym and doing leg exercises prior to development of pain left knee. Has been unable to do so since that time. On examination she localizes the pain very well to the lateral medial aspects of the patella. Examination shows no effusion in the knee. MCL and LCL are intact cruciate ligaments are intact. No patellofemoral joint crepitus. No prepatellar bursitis mild infrapatellar bursitis. Pain is well localized and very tender along the lateral and medial aspect of the patella suggesting this is a strain of the quadriceps musculature as it encapsulates the patella and is likely due to overuse injury in the gym. I am going to place her on prednisone 20 mg twice daily for 5 days with breakfast and supper then once daily in the morning for another 5 days. She will discontinue meloxicam and it will be replaced with Voltaren 75 mg twice daily for 6 days. This is to be taken with food as well. Suggested Pepcid 20 mg at bedtime for the next 14 days to provide for GI protection. Failing improvement she may benefit from deep ultrasound treatment and physiotherapy. Departure - Departure Time of Disposition: 10:27 Disposition: Home, Self-Care 01 Condition: Fair Clinical Impression: Strain of quadriceps tendon Qualifiers: Encounter type: initial encounter Laterality: left Qualified Code(s): S76.112A - Strain of left quadriceps muscle, fascia and tendon, initial encounter - Discharge Information *PRESCRIPTION DRUG MONITORING PROGRAM REVIEWED*: Not Applicable *COPY OF PRESCRIPTION DRUG MONITORING REPORT IN PATIENT ISSA: Not Applicable Prescriptions: Famotidine [Pepcid] 20 mg PO BEDTIME #14 tab predniSONE [Prednisone] 20 mg PO ASDIRECTED #15 tablet Diclofenac Sodium [Voltaren] 75 mg PO BIDMEALS #12 tab.cr Instructions: Quadriceps Strain Referrals: PCP,None [Primary Care Provider] - Forms: ED Department Discharge Additional Instructions: Evaluation in the emergency room today in regards to pain left knee for the last month worsened by flexing the knee and the quadriceps muscle. Examination reveals no fluid within the true knee joint and no increased warmth to suggest underlying inflammation. Pain is coming from the quadriceps muscle and tendon as it wraps around the kneecap or encapsulates the kneecap before it inserts just below the kneecap into your lower leg. Both sides of the kneecap or patella are very tender to touch due to inflammation of the quadriceps muscle/tendon which wraps around the kneecap. I suspect this inflammation was started from workout in the gym with leg exercise program. Essentially needs a rest to heal. It would likely be another 3 to 4 weeks before the inflammation settles completely. Suggest medication prednisone 20 mg with breakfast and supper for 5 days and then once in the morning only for another 5 days. Also use Voltaren 75 mg twice daily with breakfast and supper i.e. with food for the next 6 days. Suggest use of Pepcid 20 mg once daily at bedtime to protect the stomach lining from the effect of anti-inflammatory medicines. Discontinue meloxicam medication that was previously prescribed as it is not working. Follow-up with primary care provider in 10 to 12 days time if not markedly improved. If not improved in 10 days time with medication physiotherapy would be an option with ultrasound of the tendon and quadriceps musculature to help it heal a bit faster. Sepsis Event Note (ED) - Evaluation Sepsis Screening Result: No Definite Risk - Focused Exam Vital Signs: Vital Signs Temp Pulse Resp BP Pulse Ox 07/24/21 10:16 36.1 C 66 16 133/78 100
== END 2021-07-24 10:44 | disposition home or self-care (01) ==
LOC: JD.ED 10:06
DX: S76.112A Strain of left quadriceps muscle, fascia and tendon, initial encounter (principal); W18.39XA Other fall on same level, initial encounter; Y93.43 Activity, gymnastics
CPT/HCPCS: 99283

== ENCOUNTER 2022-03-19 21:08 | Emergency (ER) | payer MEDICAID ==
[2022-03-19 21:19] VITALS: BP 123/107; PULSE 70
[2022-03-19] MEDS ORDERED: diphenhydrAMINE 50 MG/ML SDV IM ONE (21:26)
[2022-03-19] MEDS ORDERED: Metoclopramide 10 MG/2 ML SDV IM ONE (21:26)
[2022-03-19] MEDS ORDERED: Ketorolac 30 MG/ML SDV IM ONE (21:26)
== END 2022-03-19 22:36 | disposition home or self-care (01) ==
LOC: JD.ED 21:08
DX: G43.809 Other migraine, not intractable, without status migrainosus (principal)
CPT/HCPCS: 96372; 99283; J1200; J1885; J2765

== ENCOUNTER 2022-05-31 18:36 | Emergency (ER) | payer MEDICAID ==
[2022-05-31 18:44] VITALS: BP 107/106; PULSE 76
[2022-05-31] MEDS ORDERED: diphenhydrAMINE 50 MG/ML SDV IM ONE (18:59)
[2022-05-31] MEDS ORDERED: Metoclopramide 10 MG/2 ML SDV IM ONE (18:59)
[2022-05-31] MEDS ORDERED: Ketorolac 30 MG/ML SDV IM ONE (18:59)
== END 2022-05-31 21:16 | disposition home or self-care (01) ==
LOC: JD.ED 18:36
DX: G44.209 Tension-type headache, unspecified, not intractable (principal)
CPT/HCPCS: 96372; 99283; J1200; J1885; J2765

== ENCOUNTER 2022-07-07 10:49 | Emergency (ER) | payer MEDICAID ==
[2022-07-07 11:20] VITALS: BP 114/91; PULSE 69
[2022-07-07] MEDS: Ondansetron 4 MG/2 ML SDV IVPUSH ONE (12:07)
[2022-07-07] MEDS: Sodium Chloride 0.9% 1,000 ML IV STA (12:08)
[2022-07-07] MEDS: Sodium Chloride 0.9% 10 ML Syringe FLUSH PRN (12:08)
[2022-07-07 12:40] LABS: ESTIMATED GFR 87 mL/min (>60)
== END 2022-07-07 13:45 | disposition home or self-care (01) ==
LOC: JD.ED 10:49
DX: N93.9 Abnormal uterine and vaginal bleeding, unspecified (principal)
CPT/HCPCS: 36415; 80053; 84703; 85025; 96361; 96374; 99284; J2405; J3490; J7030

== ENCOUNTER 2023-01-07 17:43 | Emergency (ER) | payer SELFPAY ==
[2023-01-07] MEDS ORDERED: cefTRIAXone 1 GM in Sodium Chloride 0.9% 100 ML IV ONE (20:27)
[2023-01-07] MEDS ORDERED: Sodium Chloride 0.9% 10 ML Syringe FLUSH PRN (20:27)
[2023-01-07 22:38] VITALS: BP 124/82; PULSE 95
== END 2023-01-07 21:25 | disposition home or self-care (01) ==
LOC: JD.ED 17:43
DX: O23.41 Unspecified infection of urinary tract in pregnancy, first trimester (principal); N39.0 Urinary tract infection, site not specified; O99.511 Diseases of the respiratory system complicating pregnancy, first trimester; J45.909 Unspecified asthma, uncomplicated; Z3A.01 Less than 8 weeks gestation of pregnancy
CPT/HCPCS: 36415; 80053; 81001; 84703; 85025; 87086; 87088; 87186; 96365; 99283; J0696; J3490

== ENCOUNTER 2023-09-05 06:57 | Inpatient (IN) | payer MEDICAID ==
[~2023-09-05 06:57] MED LIST: Lidocaine 1% 50 ML MDV INJECT PRN; Nalbuphine HCl 10 MG/ 1ML Amp IVPUSH PRN; Ondansetron 4 MG/2 ML SDV IVPUSH PRN; Sodium Chloride 0.9% 10 ML Syringe FLUSH PRN
[2023-09-05] MEDS ORDERED: Oxytocin/Lactated Ringers 10 UNIT/1,000 ML BAG IV SCH ×2 (07:00)
[2023-09-05] MEDS ORDERED: Lactated Ringers 1,000 ML IV SCH (07:00)
[2023-09-05 07:17] LABS: BASOPHILS ABSOLUTE AUTO 0.1 K/mm3 (0.0-0.2); BASOPHILS PERCENT AUTO 1.2 % (0.0-1.0); EOSINOPHILS ABSOLUTE AUTO 0.1 K/mm3 (0.0-0.4); EOSINOPHILS PERCENT AUTO 1.7 % (0.0-6.0); HEMATOCRIT 41.9 % (37.0-47.0); HEMOGLOBIN 13.8 gm/dl (12.0-16.0); IMMATURE GRAN ABSOLUTE AUTO 0.09 K/mm3 (0.00-0.05); IMMATURE GRAN PERCENT AUTO 1.7 % (0.0-0.4); LYMPHOCYTES ABSOLUTE AUTO 1.6 K/mm3 (1.0-4.8); LYMPHOCYTES PERCENT AUTO 30.4 % (24.0-44.0); MEAN CORPUSCULAR HEMOGLOBIN 28.6 pg (28.0-32.0); MEAN CORPUSCULAR HGB CONC 32.9 g/dl (32.0-36.0); MEAN CORPUSCULAR VOLUME 86.7 fl (83.0-99.0); MEAN PLATELET VOLUME 11.2 fl (9.4-12.3); MONOCYTES ABSOLUTE AUTO 0.4 K/mm3 (0.0-0.8); MONOCYTES PERCENT AUTO 8.1 % (0.0-8.0); NEUTROPHILS PERCENT AUTO 56.9 % (41.0-71.0); PLATELET COUNT,PLT 208 K/mm3 (150-400); RED BLOOD CELL COUNT 4.83 M/mm3 (4.10-5.30); WHITE BLOOD CELL COUNT,WBC 5.19 K/mm3 (3.9-11.3)
[2023-09-05] MEDS ORDERED: Sodium Chloride 0.9% 10 ML Syringe FLUSH SCH (09:00)
[2023-09-05] MEDS ORDERED: Docusate Sodium 100 MG Cap PO PRN (11:34)
[2023-09-05] MEDS ORDERED: Acetaminophen 325 MG Tab PO PRN (11:34)
[2023-09-05] MEDS ORDERED: Benzocaine/Menthol 20%-0.5% Spray 78 GM Cannister TOP PRN (11:34)
[2023-09-05] MEDS ORDERED: Witch Hazel Medicated Pads 40/Jar TOP PRN (11:34)
[2023-09-05] MEDS ORDERED: Ibuprofen 600 MG Tab PO PRN (11:34)
[2023-09-06 12:49] VITALS: BP 122/91; PULSE 94
== END 2023-09-06 13:15 | disposition home or self-care (01) | DRG 807 ==
LOC: JD.OB 06:57 → OBSVTOIN 11:16 → JD.OB 11:21
PROVIDERS: ADMIT Obstetrics & Gynecology; ATTEND Obstetrics & Gynecology
PROC: 10E0XZZ Delivery of Products of Conception, External Approach (ICD-10-PCS; principal; 2023-09-05)
PROC: 0KQM0ZZ Repair Perineum Muscle, Open Approach (ICD-10-PCS; 2023-09-05)
PROC: 10907ZC Drainage of Amniotic Fluid, Therapeutic from Products of Conception, Via Natural or Artificial Opening (ICD-10-PCS; 2023-09-05)
DX: O70.1 Second degree perineal laceration during delivery (principal); Z37.0 Single live birth; Z3A.39 39 weeks gestation of pregnancy
CPT/HCPCS: 36415; 59025; 59409; 85025; 86592; 86850; 86900; 86901; J2590